=== PATIENT | male | born 1970 | race Caucasian/White ===

== ENCOUNTER 2020-02-03 08:22 | Outpatient (REF) | payer BC, SELFPAY ==
[2020-02-03 11:49] LABS: Alanine Aminotransferase 40 U/L (0-40); Albumin Level 4.6 g/dL (3.5-5.0); Alkaline Phosphatase 53 U/L (39-117); Anion Gap 15 (12-20); Aspartate Amino Transferase 32 U/L (5-37); Bilirubin Total 0.7 mg/dL (0.0-1.0); Blood Urea Nitrogen 14 mg/dL (9-16); Calcium 9.4 mg/dL (8.4-10.2); Carbon Dioxide 28 mmol/L (22-29); Chloride 103 mmol/L (96-108); Cholesterol 186 mg/dL; Estimated Glomerular Filt Rate > 60; Glucose Fasting 120 mg/dL (60-99); HDL Cholesterol 62 mg/dL; LDL Cholesterol Calculated 113 mg/dl; Potassium 5.2 mmol/l (3.3-5.1); Sodium 141 mmol/L (135-145); Total Protein 7.3 g/dL (6.5-8.0); Triglycerides 57 mg/dL
== END 2020-02-03 08:23 | disposition home or self-care (01) ==
LOC: HO.HMGCLDS 08:22
PROVIDERS: PCP Nurse Practitioner Family; Visit Provider Nurse Practitioner Family
DX: E11.9 Type 2 diabetes mellitus without complications (principal)
CPT/HCPCS: 80053; 80061

== ENCOUNTER 2020-02-25 07:52 | Outpatient (REF) | payer BC, SELFPAY ==
[2020-02-25 11:28] LABS: Estimated Average Glucose 154 mg/dL
[2020-02-25 12:10] LABS: Anion Gap 14 (12-20); Blood Urea Nitrogen 18 mg/dL (9-16); Calcium 9.4 mg/dL (8.4-10.2); Carbon Dioxide 29 mmol/L (22-29); Chloride 102 mmol/L (96-108); Cholesterol 188 mg/dL; Estimated Glomerular Filt Rate > 60; Glucose Random 125 mg/dL (60-115); HDL Cholesterol 45 mg/dL; LDL Cholesterol Calculated 101 mg/dl; Potassium 5.8 mmol/l (3.3-5.1); Sodium 139 mmol/L (135-145); Triglycerides 211 mg/dL
[2020-02-25 12:33] LABS: Prostate Specific Antigen Scr 0.78 ng/mL (<0.05-4.0)
== END 2020-02-25 07:53 | disposition home or self-care (01) ==
LOC: HO.HMGCLDS 07:52
PROVIDERS: PCP Nurse Practitioner Family; Visit Provider Nurse Practitioner Family
DX: Z12.5 Encounter for screening for malignant neoplasm of prostate (principal); E11.9 Type 2 diabetes mellitus without complications; E87.5 Hyperkalemia
CPT/HCPCS: 80048; 80061; 83036; 84153

== ENCOUNTER 2020-03-06 07:53 | Outpatient (REF) | payer BC, SELFPAY ==
[2020-03-06 11:34] LABS: Anion Gap 13 (12-20); Carbon Dioxide 29 mmol/L (22-29); Chloride 103 mmol/L (96-108); Potassium 4.5 mmol/l (3.3-5.1); Sodium 140 mmol/L (135-145)
== END 2020-03-06 07:54 | disposition home or self-care (01) ==
LOC: HO.HMGCLDS 07:53
PROVIDERS: PCP Nurse Practitioner Family; Visit Provider Nurse Practitioner Family
DX: E87.5 Hyperkalemia (principal)
CPT/HCPCS: 80051

== ENCOUNTER 2020-05-05 06:51 | Outpatient (REF) | payer BC, SELFPAY ==
[2020-05-05 11:54] LABS: Anion Gap 14 (12-20); Carbon Dioxide 31 mmol/L (22-29); Chloride 102 mmol/L (96-108); Cholesterol 185 mg/dL; HDL Cholesterol 51 mg/dL; LDL Cholesterol Calculated 111 mg/dl; Potassium 4.5 mmol/l (3.3-5.1); Sodium 142 mmol/L (135-145); Triglycerides 116 mg/dL
== END 2020-05-05 06:52 | disposition home or self-care (01) ==
LOC: HO.HMGCLDS 06:51
PROVIDERS: PCP Nurse Practitioner Family; Visit Provider Nurse Practitioner Family
DX: E87.5 Hyperkalemia (principal); E78.5 Hyperlipidemia, unspecified
CPT/HCPCS: 36415; 80051; 80061

== ENCOUNTER 2020-07-15 09:39 | Outpatient (REF) | payer BC, SELFPAY ==
[2020-07-15 11:06] LABS: Estimated Average Glucose 151 mg/dL; Hemoglobin A1c % 6.9 %
== END 2020-07-15 09:40 | disposition home or self-care (01) ==
LOC: HO.LAB 09:39
PROVIDERS: PCP Nurse Practitioner Family; Visit Provider Nurse Practitioner Family
DX: E11.9 Type 2 diabetes mellitus without complications (principal)
CPT/HCPCS: 36415; 83036

== ENCOUNTER 2020-11-10 12:44 | Outpatient (REF) | payer BC, SELFPAY ==
[2020-11-10 14:07] LABS: Estimated Average Glucose 154 mg/dL
[2020-11-10 14:19] LABS: Creatinine Urine 32.87 mg/dL; Microalbumin Urine < 5.0 mg/L
[2020-11-10 14:21] LABS: Alanine Aminotransferase 22 U/L (0-40); Albumin Level 4.8 g/dL (3.5-5.0); Alkaline Phosphatase 51 U/L (39-117); Anion Gap 14 (12-20); Aspartate Amino Transferase 23 U/L (5-37); Bilirubin Total 0.7 mg/dL (0.0-1.0); Blood Urea Nitrogen 21 mg/dL (9-16); Calcium 10.1 mg/dL (8.4-10.2); Carbon Dioxide 27 mmol/L (22-29); Chloride 104 mmol/L (96-108); Cholesterol 229 mg/dL; Estimated Glomerular Filt Rate > 60; Glucose Fasting 132 mg/dL (60-99); HDL Cholesterol 56 mg/dL; LDL Cholesterol Calculated 156 mg/dl; Potassium 4.8 mmol/L (3.3-5.1); Sodium 140 mmol/L (135-145); Total Protein 7.8 g/dL (6.5-8.0); Triglycerides 88 mg/dL
[2020-11-13 18:17] LABS: Follicle Stimulating Hormone 1.6 mIU/mL (1.6-8.0); Lutenizing Hormone 1.3 mIU/mL (1.5-9.3)
[2020-11-15 11:32] LABS: Testosterone, Free 55.2 pg/mL (35.0-155.0); Testosterone, Total 502 ng/dL (250-1100)
== END 2020-11-10 12:45 | disposition home or self-care (01) ==
LOC: HO.HMGCLDS 12:44
PROVIDERS: PCP Nurse Practitioner Family; Visit Provider Nurse Practitioner Family
DX: N52.9 Male erectile dysfunction, unspecified (principal); E11.9 Type 2 diabetes mellitus without complications
CPT/HCPCS: 36415; 80053; 80061; 82043; 83001; 83002; 83036; 84402; 84403

== ENCOUNTER → 2020-11-30 13:32 | Outpatient (BNVA) | payer BC, SELFPAY | PROVIDERS: PCP Nurse Practitioner Family; Visit Provider Urology ==

== ENCOUNTER → 2020-12-19 14:23 | Outpatient (BNVA) | payer BC, SELFPAY | PROVIDERS: PCP Nurse Practitioner Family; Referring Provider Nurse Practitioner Family; Visit Provider Surgery ==

== ENCOUNTER 2021-02-22 14:57 | Outpatient (REF) | payer BC, SELFPAY ==
[2021-02-22 16:45] LABS: Estimated Average Glucose 160 mg/dL; Hemoglobin A1c % 7.2 %
[2021-02-22 16:50] LABS: Alanine Aminotransferase 38 U/L (0-40); Albumin Level 4.7 g/dL (3.5-5.0); Alkaline Phosphatase 58 U/L (39-117); Anion Gap 14 (12-20); Aspartate Amino Transferase 30 U/L (5-37); Bilirubin Total 0.6 mg/dL (0.0-1.0); Blood Urea Nitrogen 15 mg/dL (9-16); Calcium 9.9 mg/dL (8.4-10.2); Carbon Dioxide 27 mmol/L (22-29); Chloride 103 mmol/L (96-108); Cholesterol 204 mg/dL; Estimated Glomerular Filt Rate > 60; Glucose Fasting 112 mg/dL (60-99); HDL Cholesterol 60 mg/dL; LDL Cholesterol Calculated 129 mg/dl; Potassium 4.9 mmol/L (3.3-5.1); Sodium 139 mmol/L (135-145); Total Protein 7.8 g/dL (6.5-8.0); Triglycerides 79 mg/dL
[2021-02-22 17:10] LABS: Prostate Specific Antigen Scr 0.77 ng/mL (<0.05-4.0)
== END 2021-02-22 14:58 | disposition home or self-care (01) ==
LOC: HO.HMGCLDS 14:57
PROVIDERS: PCP Nurse Practitioner Family; Visit Provider Nurse Practitioner Family
DX: E11.9 Type 2 diabetes mellitus without complications (principal); Z12.5 Encounter for screening for malignant neoplasm of prostate
CPT/HCPCS: 36415; 80053; 80061; 83036; 84153

== ENCOUNTER 2021-05-25 06:54 | Outpatient (REF) | payer BC, SELFPAY | END 2021-05-25 06:55 | disposition home or self-care (01) | LOC: HO.HMGCLDS 06:54 | PROVIDERS: Visit Provider Nurse Practitioner Family | DX: Z12.5 Encounter for screening for malignant neoplasm of prostate (principal) | CPT/HCPCS: 36415; 84153 ==

== ENCOUNTER 2021-06-11 06:52 | Outpatient (REF) | payer BC, SELFPAY ==
[2021-06-11 11:45] LABS: Estimated Average Glucose 226 mg/dL; Hemoglobin A1c % 9.5 %
[2021-06-11 11:54] LABS: Alanine Aminotransferase 26 U/L (0-40); Anion Gap 12 (12-20); Aspartate Amino Transferase 22 U/L (5-37); Blood Urea Nitrogen 17 mg/dL (9-16); Carbon Dioxide 29 mmol/L (22-29); Chloride 103 mmol/L (96-108); Estimated Glomerular Filt Rate > 60; Glucose Fasting 254 mg/dL (60-99); Potassium 5.2 mmol/L (3.3-5.1); Sodium 139 mmol/L (135-145)
[2021-06-11 12:19] LABS: Creatinine Urine 91.79 mg/dL; Microalbumin Urine < 5.0 mg/L
== END 2021-06-11 06:53 | disposition home or self-care (01) ==
LOC: HO.HMGCLDS 06:52
PROVIDERS: PCP Nurse Practitioner Family; Visit Provider Internal Medicine
DX: E11.9 Type 2 diabetes mellitus without complications (principal)
CPT/HCPCS: 36415; 80048; 82043; 83036; 84450; 84460

== ENCOUNTER → 2021-08-08 15:18 | Outpatient (BNVA) | payer BC, SELFPAY | PROVIDERS: PCP Nurse Practitioner Family; Visit Provider Internal Medicine Endocrinology, Diabetes & Metabolism | DX: E11.9 Type 2 diabetes mellitus without complications (principal); Z79.4 Long term (current) use of insulin | CPT/HCPCS: 82947 ==

== ENCOUNTER 2021-08-09 06:00 | Outpatient (REF) | payer BC, SELFPAY ==
[2021-08-09 11:42] LABS: Estimated Average Glucose 246 mg/dL; Hemoglobin A1c % 10.2 %
[2021-08-09 12:09] LABS: TSH reflex Free T4 2.66 uIU/mL (0.32-4.0)
[2021-08-09 12:20] LABS: Alanine Aminotransferase 35 U/L (0-40); Albumin Level 4.4 g/dL (3.5-5.0); Alkaline Phosphatase 50 U/L (39-117); Anion Gap 14 (12-20); Aspartate Amino Transferase 31 U/L (5-37); Bilirubin Total 0.6 mg/dL (0.0-1.0); Blood Urea Nitrogen 18 mg/dL (9-16); Calcium 9.8 mg/dL (8.4-10.2); Carbon Dioxide 28 mmol/L (22-29); Chloride 102 mmol/L (96-108); Cholesterol 180 mg/dL; Estimated Glomerular Filt Rate 59; Glucose Fasting 225 mg/dL (60-99); HDL Cholesterol 46 mg/dL; LDL Cholesterol Calculated 110 mg/dl; Potassium 4.8 mmol/L (3.3-5.1); Sodium 139 mmol/L (135-145); Total Protein 7.2 g/dL (6.5-8.0); Triglycerides 122 mg/dL
[2021-08-09 12:33] LABS: Appearance Urine CLEAR; Color Urine DK YELLOW; Glucose Urine UA 100 MG/DL (NEG); Leukocyte Esterase Urine NEG (NEG); Nitrite Urine NEG (NEG); Specific Gravity - Urine 1.025 (1.005-1.025); Urine Blood NEG (NEG); Urine Ketones 5 MG/DL (NEG); Urine Protein NEG (NEG-TRACE)
[2021-08-14 20:26] LABS: Glutamic acid decarboxylase Ab <5 IU/mL (<5)
== END 2021-08-09 06:01 | disposition home or self-care (01) ==
LOC: HO.HMGCLDS 06:00
PROVIDERS: PCP Nurse Practitioner Family; Visit Provider Internal Medicine Endocrinology, Diabetes & Metabolism
DX: E11.9 Type 2 diabetes mellitus without complications (principal)
CPT/HCPCS: 36415; 80053; 80061; 81003; 83036; 84443; 86341

== ENCOUNTER → 2021-08-14 14:50 | Outpatient (BNVA) | payer BC, SELFPAY | PROVIDERS: PCP Nurse Practitioner Family; Visit Provider Registered Nurse Diabetes Educator | DX: Z13.89 Encounter for screening for other disorder (principal) ==

== ENCOUNTER 2021-09-12 06:22 | Outpatient (REF) | payer BC, SELFPAY ==
[2021-09-12 11:35] LABS: Appearance Urine CLEAR; Color Urine YELLOW; Glucose Urine UA NEG (NEG); Leukocyte Esterase Urine NEG (NEG); Nitrite Urine NEG (NEG); Specific Gravity - Urine 1.025 (1.005-1.025); UACC Culture Trigger NO; Urine Blood TRACE (NEG); Urine Ketones NEG (NEG); Urine Protein NEG (NEG-TRACE)
[2021-09-12 12:01] LABS: Alanine Aminotransferase 26 U/L (0-40); Albumin Level 4.1 g/dL (3.5-5.0); Alkaline Phosphatase 48 U/L (39-117); Anion Gap 13 (12-20); Aspartate Amino Transferase 26 U/L (5-37); Bilirubin Total 0.3 mg/dL (0.0-1.0); Blood Urea Nitrogen 17 mg/dL (9-16); Calcium 9.6 mg/dL (8.4-10.2); Carbon Dioxide 26 mmol/L (22-29); Chloride 105 mmol/L (96-108); Cholesterol 186 mg/dL; Estimated Glomerular Filt Rate > 60; Glucose Fasting 137 mg/dL (60-99); HDL Cholesterol 56 mg/dL; LDL Cholesterol Calculated 106 mg/dl; Potassium 4.3 mmol/L (3.3-5.1); Sodium 140 mmol/L (135-145); Total Protein 6.9 g/dL (6.5-8.0); Triglycerides 122 mg/dL
[2021-09-12 12:06] LABS: TSH reflex Free T4 2.14 uIU/mL (0.32-4.0)
[2021-09-12 12:07] LABS: RBC Urine 0-2 /HPF (0); WBC Urine 0 /HPF (0-4)
== END 2021-09-12 06:23 | disposition home or self-care (01) ==
LOC: HO.HMGCLDS 06:22
PROVIDERS: Visit Provider Nurse Practitioner Family
DX: E11.69 Type 2 diabetes mellitus with other specified complication (principal); N52.1 Erectile dysfunction due to diseases classified elsewhere; E78.5 Hyperlipidemia, unspecified; Z71.3 Dietary counseling and surveillance
CPT/HCPCS: 36415; 80053; 80061; 81001; 84443; 97802

== ENCOUNTER 2021-09-24 09:39 | Outpatient (REF) | payer BC, SELFPAY ==
--- NOTE | ~2021-09-24 | XR_ITS ---
EXAMINATION: XR KNEE, LEFT CLINICAL INFORMATION: Pain COMPARISON: None TECHNIQUE: Four views of the left knee. FINDINGS: Bone alignment is normal. No fracture or dislocation is seen. There is degenerative meniscal calcification. There are small osteophytes at the patellofemoral joint. There is a small joint effusion. XR/XR knee LT 4V IMPRESSION: Degenerative changes.
== END 2021-09-24 09:40 | disposition home or self-care (01) ==
LOC: HO.HMGCX 09:39
PROVIDERS: Visit Provider Nurse Practitioner Family
DX: M25.562 Pain in left knee (principal)
CPT/HCPCS: 73564

== ENCOUNTER → 2021-11-08 14:15 | Outpatient (BNVA) | payer BC, SELFPAY | PROVIDERS: PCP Nurse Practitioner Family; Visit Provider Internal Medicine Endocrinology, Diabetes & Metabolism | DX: E11.9 Type 2 diabetes mellitus without complications (principal) | CPT/HCPCS: 82947 ==

== ENCOUNTER 2021-11-16 06:29 | Outpatient (REF) | payer BC, SELFPAY ==
[2021-11-16 11:54] LABS: MANUAL DIFF FLAG NO
[2021-11-16 12:07] LABS: Basophils Percent Auto 0.6 % (0-2); Eosinophils Absolute Auto 0.3 X10*3/uL (0.0-0.4); Eosinophils Percent Auto 5.1 % (0-4); Hematocrit 43.2 % (42.0-52.0); Hemoglobin 14.1 g/dl (14.0-18.0); Imm Gran Abs Auto 0.01 X10*3/uL (0.00-0.03); Imm Gran Pct Auto 0.2 % (0.0-0.4); Lymphocytes Absolute Auto 1.6 X10*3/uL (1.2-4.9); Lymphocytes Percent Auto 31.8 % (20-40); Mean Corpuscular HGB Conc 32.6 g/dl (31.0-36.0); Mean Corpuscular Volume 91.9 fL (80.0-98.0); Monocytes Absolute Auto 0.6 X10*3/uL (0.1-1.2); Monocytes Percent Auto 11.6 % (2-11); Neutrophils Absolute Auto 2.6 x10*3/uL (2.0-8.3); Neutrophils Percent Auto 50.7 % (45-73); Platelet Count 247 X10*3/uL (160-400); White Blood Count 5.1 X10*3/uL (4.8-10.8)
[2021-11-16 12:17] LABS: Appearance Urine CLEAR; Color Urine YELLOW; Glucose Urine UA NEG (NEG); Leukocyte Esterase Urine NEG (NEG); Nitrite Urine NEG (NEG); PH 5.5 (5.0-8.0); Specific Gravity - Urine >= 1.030 (1.005-1.025); UACC Culture Trigger NO; Urine Blood TRACE (NEG); Urine Ketones 5 MG/DL (NEG); Urine Protein NEG (NEG-TRACE)
[2021-11-16 12:32] LABS: Alanine Aminotransferase 22 U/L (0-40); Albumin Level 4.5 g/dL (3.5-5.0); Alkaline Phosphatase 45 U/L (39-117); Anion Gap 15 (12-20); Aspartate Amino Transferase 24 U/L (5-37); Bilirubin Total 0.7 mg/dL (0.0-1.0); Blood Urea Nitrogen 20 mg/dL (9-16); Calcium 10.1 mg/dL (8.4-10.2); Carbon Dioxide 27 mmol/L (22-29); Chloride 104 mmol/L (96-108); Cholesterol 207 mg/dL; Estimated Glomerular Filt Rate 58; Glucose Fasting 116 mg/dL (60-99); HDL Cholesterol 58 mg/dL; LDL Cholesterol Calculated 130 mg/dl; Potassium 5.5 mmol/L (3.3-5.1); Sodium 140 mmol/L (135-145); Total Protein 7.4 g/dL (6.5-8.0); Triglycerides 99 mg/dL
[2021-11-16 12:37] LABS: Prostate Specific Antigen Scr 0.98 ng/mL (<0.05-4.0); TSH reflex Free T4 1.48 uIU/mL (0.32-4.0)
[2021-11-16 12:48] LABS: Mucus Urine 1+ /LPF; RBC Urine 0-2 /HPF (0); Squamous Epithelial Cell Urine TRACE /LPF; WBC Urine 0-2 /HPF (0-4)
== END 2021-11-16 06:30 | disposition home or self-care (01) ==
LOC: HO.CHCLDS 06:29
PROVIDERS: PCP Nurse Practitioner Family; Visit Provider Nurse Practitioner Family
DX: Z00.00 Encounter for general adult medical examination without abnormal findings (principal); E87.5 Hyperkalemia; Z12.5 Encounter for screening for malignant neoplasm of prostate
CPT/HCPCS: 36415; 80053; 80061; 81001; 81003; 84153; 84443; 85025

== ENCOUNTER 2022-03-04 08:47 | Outpatient (REF) | payer BC, SELFPAY ==
[2022-03-04 10:09] LABS: Anion Gap 14 (12-20); Carbon Dioxide 28 mmol/L (22-29); Chloride 105 mmol/L (96-108); Cholesterol 195 mg/dL; HDL Cholesterol 48 mg/dL; LDL Cholesterol Calculated 133 mg/dl; Potassium 4.9 mmol/L (3.3-5.1); Sodium 142 mmol/L (135-145); Triglycerides 72 mg/dL
[2022-03-04 10:22] LABS: Appearance Urine Clear; Color Urine Yellow; Glucose Urine UA Negative (Negative); Leukocyte Esterase Urine Negative (Negative); Nitrite Urine Negative (Negative); Specific Gravity - Urine 1.025 (1.005-1.025); Urine Blood Negative (Negative); Urine Ketones Trace mg/dL (Negative); Urine Protein Negative (Neg-Trace)
[2022-03-04 11:34] LABS: Glucose 1 Hour 325 mg/dL
[2022-03-04 12:43] LABS: Glucose 2 Hour 295 mg/dL
[2022-03-04 13:13] LABS: Glucose Fasting 107 mg/dL (60-99)
[2022-03-06 03:36] LABS: C Peptide 0.71 ng/mL (0.80-3.85)
== END 2022-03-04 08:48 | disposition home or self-care (01) ==
LOC: HO.LAB 08:47
PROVIDERS: Absent Provider Internal Medicine Endocrinology, Diabetes & Metabolism; PCP Nurse Practitioner Family; Visit Provider Nurse Practitioner Family
DX: Z00.00 Encounter for general adult medical examination without abnormal findings (principal); E87.5 Hyperkalemia; E11.9 Type 2 diabetes mellitus without complications
CPT/HCPCS: 36415; 80051; 80061; 81003; 82951; 84681

== ENCOUNTER → 2022-03-29 07:50 | Outpatient (BNVA) | payer BC, SELFPAY | PROVIDERS: PCP Nurse Practitioner Family; Visit Provider Internal Medicine Endocrinology, Diabetes & Metabolism | DX: E11.9 Type 2 diabetes mellitus without complications (principal) | CPT/HCPCS: 82947; 83036 ==

== ENCOUNTER 2022-10-04 09:35 | Outpatient (REF) | payer BC, SELFPAY ==
[2022-10-04 12:23] LABS: Microalbumin Urine < 5.0 mg/L
[2022-10-04 12:35] LABS: Cholesterol 186 mg/dL; HDL Cholesterol 49 mg/dL; LDL Cholesterol Calculated 113 mg/dl; Triglycerides 120 mg/dL
== END 2022-10-04 09:36 | disposition home or self-care (01) ==
LOC: HO.HMGCLDS 09:35
PROVIDERS: PCP Nurse Practitioner Family; Visit Provider Internal Medicine Endocrinology, Diabetes & Metabolism
DX: E11.9 Type 2 diabetes mellitus without complications (principal)
CPT/HCPCS: 36415; 80061; 82043

== ENCOUNTER → 2022-10-08 07:54 | Outpatient (BNVA) | payer BC, SELFPAY | PROVIDERS: PCP Nurse Practitioner Family; Visit Provider Internal Medicine Endocrinology, Diabetes & Metabolism | DX: E11.9 Type 2 diabetes mellitus without complications (principal); Z79.4 Long term (current) use of insulin | CPT/HCPCS: 82947; 83036 ==

== ENCOUNTER 2023-03-14 15:39 | Outpatient (AMB) | payer BC, SELFPAY ==
--- NOTE | 2023-03-14 15:45 | MHC.OFFVIS ---
Intake Intake Visit Reasons: 1 year follow up Intake Note: Patient is Present for Follow Up Urology Medication: Sildenafil Antibiotic Allergies: None Blood Thinners: None Allergies No Known Allergies Allergy (Verified 03/14/23 15:46) HPI HPI Comments History of Present Illness Details Navin is a pleasant male. He is seen for the following urologic conditions - erectile dysfunction Twelve month follow-up Will switch to daily 10mg tadalafil with on demand high-dose sildenafil Three month follow-up labs Erectile dysfunction Diabetic Last HBA1c 10/04 7.1 Response to medication - does obtain erection but does not maintain Response does not very with increasing dose Baseline labs 11/01 T 500, well controlled HbA1c Discussion about maximum dose sildenafil 200 mg Other options include constriction band, vacuum pump, injectable therapy and penile prosthetic PFSH Medical History Dyslipidemia Diabetes Surgical History No pertinent past surgical history Family History Father No problems noted. Mother Dementia Sister No problems noted. Social History Housing: House Alcohol intake: current Patient Tobacco Use Status: Never used Tobacco e-Cigarette/Vaping Use: Never Used Second Hand Smoke Exposure: No service: Yes Current occupational status: employed Current occupation: [employer] Current occupational exposures/hazards: Yes Cognitive needs: No Hearing needs: No Vision needs: Yes Review of Systems Const Denies chills and Denies fever(s) Card Reports no additional complaints and Denies syncope Resp Denies cough GI Denies abdominal pain and Denies heartburn Reports as per HPI and Denies change in libido Neuro Denies syncope Psych Denies change in libido Endo Denies change in libido Physical Exam Const General: cooperative, healthy appearing, comfortable and no acute distress Orientation/consciousness: patient oriented x3 HEENT Face and sinus: Yes normal facial exam Mouth: moist mucous membranes Neck Neck: Yes normal visual inspection, Yes full ROM and Yes trachea midline Chest Chest palpation & inspection: normal inspection of the chest Resp Effort & Inspection: normal respiratory effort, able to speak in complete sentences and no respiratory distress GI Inspection: Yes normal to inspection Back/Spine/Pelvis Cervical Spine: normal cervical lordosis Thoracic/Lumbar Spine: thoracic and lumbar spine normal to inspection Skin General skin exam: no rashes or lesions noted Neuro General: patient oriented x3, gait normal, tone normal and moves all extremities Extrem General: Yes normal to inspection and Yes capillary refill normal Assessment & Plan Assessment & Plan (1) Erectile dysfunction associated with type 2 diabetes mellitus: Code(s): E11.69 - Type 2 diabetes mellitus with other specified complication; N52.1 - Erectile dysfunction due to diseases classified elsewhere Plan Three month follow-up Orders: Orders Testosterone, Free/Total 3 Months E11.69 - Type 2 diabetes mellitus with other specified complication, N52.1 - Erectile dysfunction due to diseases classified elsewhere Medications: New tadalafil 5 mg PO DAILY 90 tabs 0RF sexual activity 90 days E11. - Type 2 diabetes mellitus with other specified complication, N52.1 - Erectile dysfunction due to diseases classified elsewhere Patient Instructions: Imaging studies, laboratory and physical exam results were discussed and reviewed in detail. No major barriers to patient understanding were identified. An opportunity to ask questions regarding the treatment plan was provided. All questions were answered. The patient expressed understanding and agreement with the above treatment plan. The patient is aware they should contact our office by phone for worsening of their current condition or the appearance of new urologic symptoms. Compliance is encouraged with any medications and followup testing that is ordered. It is a privilege to participate in the urologic care of your patient. If you have any questions or concerns regarding treatment for the above conditions, or other urologic issues, please do not hesitate to contact me. The office telephone contact is [phone]. This note is constructed using voice recognition software. While every effort has been made to ensure accuracy senior civil engineer errors may have been included. Yours sincerely, Dr Nick Zuleta MD, [facility] - Urology Providers of Expert, Compassionate Care for the Genitourinary System Coding Level of Care Code Est Pt Level 4 (30886) Diagnoses Erectile dysfunction associated with type 2 diabetes mellitus E11.69; N52.1
== END 2023-03-14 16:45 | disposition home or self-care (01) ==
PROVIDERS: Visit Provider Urology
DX: E11.69 Type 2 diabetes mellitus with other specified complication (principal); N52.1 Erectile dysfunction due to diseases classified elsewhere
CPT/HCPCS: 99214

== ENCOUNTER → 2023-03-14 15:39 | Outpatient (BNVA) | payer BC, SELFPAY | PROVIDERS: Visit Provider Urology ==

== ENCOUNTER 2023-06-09 15:20 | Outpatient (REF) | payer BC, SELFPAY ==
[2023-06-15 09:48] LABS: Testosterone, Free 68.3 pg/mL (35.0-155.0); Testosterone, Total 474 ng/dL (250-1100)
== END 2023-06-09 15:21 | disposition home or self-care (01) ==
LOC: HO.HMGCLDS 15:20
PROVIDERS: PCP Nurse Practitioner Family; Visit Provider Urology
DX: E11.69 Type 2 diabetes mellitus with other specified complication (principal); N52.1 Erectile dysfunction due to diseases classified elsewhere
CPT/HCPCS: 36415; 84402; 84403

== ENCOUNTER 2023-06-19 08:05 | Outpatient (AMB) | payer BC, SELFPAY ==
--- NOTE | 2023-06-19 08:06 | A.OFFVIS_ITS ---
Intake Intake Visit Reasons: 3M Testo(set)Confirmed Intake Note: Patient presents today for a telehealth follow-up on Testosterone Meds- Sildenafil, Tadalafil Allergies to Antibiotic- No Known Allergies Blood Thinner- None Ammunition Assembly I Laborer Required: No Allergies No Known Allergies Allergy (Verified 06/19/23 08:08) HPI HPI Comments History of Present Illness Details Navin is a pleasant male. He is seen for the following urologic conditions - erectile dysfunction in setting of mykel davidson Telemedicine Evaluation 15 min Consultation [employer] [facility] Video attempted Good response to daily tadalafil with on demand sildenafil Continue with 5mg tadalafil with on demand high-dose sildenafil Six month f/u Erectile dysfunction Diabetic Last HBA1c 10/04 7.1 Response to medication - does obtain erection but does not maintain Response does not very with increasing dose Baseline labs 11/01 T 500, well controlled HbA1c, 06/07 T 475 FT 68 Discussion about maximum dose sildenafil 200 mg Other options include constriction band, vacuum pump, injectable therapy and penile prosthetic [facility] Medical History Dyslipidemia Diabetes Surgical History No pertinent past surgical history Family History Father No problems noted. Mother Dementia Sister No problems noted. Social History Housing: House Alcohol intake: current Patient Tobacco Use Status: Never used Tobacco e-Cigarette/Vaping Use: Never Used Second Hand Smoke Exposure: No service: Yes Current occupational status: employed Current occupation: [employer] Current occupational exposures/hazards: Yes Cognitive needs: No Hearing needs: No Vision needs: Yes Review of Systems Const All systems reviewed & are unremarkable except as noted in HPI and below Reports no additional complaints Resp Reports no additional complaints GI Reports no additional complaints Reports as per HPI [facility] [place] no additional complaints Physical Exam Telemedicine evaluation Appropriate responses Regular breathing rate and rhythm HEENT Head: Yes normal to inspection Ears: hearing grossly normal bilaterally Eyes General: appearance normal, both eyes and all related structures Neck Neck: Yes normal visual inspection Chest Chest palpation & inspection: normal inspection of the chest Resp Effort & Inspection: normal respiratory effort and able to speak in complete sentences Assessment & Plan Assessment & Plan (1) Erectile dysfunction associated with type 2 diabetes mellitus: Code(s): E11.69 - Type 2 diabetes mellitus with other specified complication; N52.1 - Erectile dysfunction due to diseases classified elsewhere Plan Six-month follow-up office Medications: Refilled tadalafil 5 mg PO DAILY 90 tabs 1RF sexual activity 90 days E11.69 - Type 2 diabetes mellitus with other specified complication, N52.1 - Erectile dysfunction due to diseases classified elsewhere Patient Instructions: Imaging studies, laboratory and physical exam results were discussed and reviewed in detail. No major barriers to patient understanding were identified. An opportunity to ask questions regarding the treatment plan was provided. All questions were answered. The patient expressed understanding and agreement with the above treatment plan. The patient is aware they should contact our office by phone for worsening of their current condition or the appearance of new urologic symptoms. Compliance is encouraged with any medications and followup testing that is ordered. It is a privilege to participate in the urologic care of your patient. If you have any questions or concerns regarding treatment for the above conditions, or other urologic issues, please do not hesitate to contact me. The office telephone contact is [phone]. This note is constructed using voice recognition software. While every effort has been made to ensure accuracy embalmer assistant errors may have been included. Yours sincerely, Dr Nick Zuleta MD, [facility] - Urology Providers of Expert, Compassionate Care for the Genitourinary System Telehealth Telehealth Location of provider rendering services: practice address Location of patient: address on file Patient Identification confirmed using: Name, : Yes Telehealth method: video Patient verbally consented to treatment: Yes Patient verbally consented to billing insurance company: Yes Patient informed of any privacy concerns related to visit: Yes Minutes spent on Phone/Video with Pt.: 15 Coding Level of Care Code Tele Est Pt Level 3 (38412) Diagnoses Erectile dysfunction associated with type 2 diabetes mellitus E11.69; N52.1
== END 2023-06-19 09:01 | disposition home or self-care (01) ==
LOC: HO.HUSH 08:06
PROVIDERS: PCP Nurse Practitioner Family; Visit Provider Urology
DX: E11.69 Type 2 diabetes mellitus with other specified complication (principal); N52.1 Erectile dysfunction due to diseases classified elsewhere
CPT/HCPCS: 99213

== ENCOUNTER → 2023-06-19 08:05 | Outpatient (BNVA) | payer BC, SELFPAY | PROVIDERS: PCP Nurse Practitioner Family; Visit Provider Urology ==

== ENCOUNTER 2023-07-04 07:28 | Outpatient (REF) | payer BC, SELFPAY ==
[2023-07-04 11:10] LABS: Cholesterol 197 mg/dL (<200); HDL Cholesterol 51 mg/dL (>40); LDL Cholesterol Calculated 128 mg/dL (<100); Triglycerides 94 mg/dL (<150)
== END 2023-07-04 07:29 | disposition home or self-care (01) ==
LOC: HO.HMGCLDS 07:28
PROVIDERS: PCP Nurse Practitioner Family; Visit Provider Internal Medicine Endocrinology, Diabetes & Metabolism
DX: E11.9 Type 2 diabetes mellitus without complications (principal)
CPT/HCPCS: 36415; 80061

== ENCOUNTER 2023-07-09 11:22 | Outpatient (AMB) | payer BC, SELFPAY ==
[2023-07-09 11:24] VITALS: BP 112/66; PULSE 76; BMI 23.4
--- NOTE | 2023-07-09 11:24 | A.OFFVIS_ITS ---
Intake Vital Signs 07/09/23 11:24 Height 5 ft 11 in Weight 167 lb 15.876 oz BMI 23.4 BP 112/66 Blood Pressure Location Lt brachial Position Sitting Pulse 76 Pulse Source Pulse Oximeter Intake Visit Reasons: f/u type 2 DM-confirmed Intake Note: Patient presents today to follow up on D2MT. Last Diabetic Eye exam:11/2022 Last Podiatry Visit: Doesn't have one Random Glucose: 98 mg/dl HgA1c: 6.7% Materials Planner Required: No Accompanied by: Self / Same As Patient Allergies No Known Allergies Allergy (Verified 07/09/23 11:29) Medication List - Last Reconciled 07/09/23 by Huey Kulkarni MD atorvastatin 80 mg (2 x 40 mg) PO QPM blood sugar diagnostic As directed blood-glucose meter,continuous (Dexcom G6 Baseboard Heating Installer) As directed blood-glucose meter,continuous (Dexcom G6 Baseboard Heating Installer) As directed blood-glucose sensor (Dexcom G6 Sensor device) As directed blood-glucose transmitter (Dexcom G6 Transmitter device) As directed glucagon 3 mg/actuation (Baqsimi) 3 mg intranasal ONCE insulin glargine (Basaglar KwikPen U-100 Insulin) 15 units (0.15 mL) subcut QAM metformin ER 1,000 mg (2 x 500 mg) PO QPM pen needle, diabetic (BD Jojo 2nd Gen Pen Needle) USE DIRECTED sildenafil 100 mg PO ONCE PRN 30 days tadalafil 5 mg PO DAILY 90 days tirzepatide (Mounjaro) 2.5 mg (0.5 mL) subcut QWEEK 4 weeks HPI HPI Comments History of Present Illness Details 51 YO M who is seen in consultation for T2DM at the request of PCP. Initially diagnosed with T2DM in 2009. Was initially started on treatment with metformin. Took insulin 2015 20 units Lantus Off insulin 2017 Current regimen metformin Er 1000 mg QD Basaglar 15 units . Moujaro 2.5 mg Qwkly tolerating meds nicely Unfortunately, patient did not bring Dexcom or glucometer to follow-up visit Reports no low sugars . No Family history of T2DM in . However CHEMO antibodies were negative Has eyes checked yearly, last eye exam7-8 mos ago , has retinopathy.To see next wk Denies neuropathy,. Denies nephropathy, Not on DYLLAN/ARB. Has HLD, on statin. . Denies CAD. Not Had diabetes education. PFSH Medical History Dyslipidemia Diabetes Surgical History No pertinent past surgical history Family History Father No problems noted. Mother Dementia Sister No problems noted. Social History Housing: House Alcohol intake: current Patient Tobacco Use Status: Never used Tobacco e-Cigarette/Vaping Use: Never Used Second Hand Smoke Exposure: No service: Yes Current occupational status: employed Current occupation: [employer] Current occupational exposures/hazards: Yes Cognitive needs: No Hearing needs: No Vision needs: Yes Physical Exam Vital Signs: Last Vital Signs Pulse 76 07/09/23 11:24 BP 112/66 07/09/23 11:24 BMI result Body Mass Index 23.4 Absence of Cushingoid features. Absence of acromegalic features. Neck exam reveals nl size thyroid about 15 gms. No thyroid nodules palpable. No carotid bruits present. Lungs CTA. Heart S1 S2, Reg R/R. No M/R/ G. Skin exam reveals absence of vitiligo or acanthosis nigricans. Abdominal exam reveals Soft NT/ND with NA BS. No organomegaly present. Neck Other: . Extrem Other: Visual exam of foot performed. No ulcerations or open lesions. No onchomycosis, no callouses.Pulses 2 + distally Sensation intact to monofilament exam. Vibratory sensation sensed is intact with 128 Hz tuning fork Results AMB Hemoglobin A1c AMB Hemoglobin A1c 6.7 % Last Edit by MELLISSA Yanes on 07/09/23 11:40 Results Reviewed Results Reviewed: Laboratory Last Values Glucose (Clinic) 98 mg/dL (60-115) 07/09/23 11:31 Assessment & Plan Assessment & Plan (1) Diabetes: Code(s): E11.9 - Type 2 diabetes mellitus without complications Plan: This is a 53-year-old white male with a history of type 2 diabetes being treated with metformin, Mounjaro and basal insulin with excellent glycemic control and no known microvascular or macrovascular complications. The plan is to continue the current management. At this point, patient returned to the care of his primary care provider and returned back to endocrinology should HbA1c deteriorate. In Terms of lipids, patient was advised to take the 80 mg of atorvastatin rather than 40 mg and his primary care provider can recheck his lipid profile. Orders: Orders AMB Hemoglobin A1c Today E11.9 - Type 2 diabetes mellitus without complications, Z13.9 - Encounter for screening, unspecified Medications: New insulin glargine (Lantus Solostar U-100 Insulin) 15 units (0.15 mL) subcut QAM 3 mL 4RF Refilled tirzepatide (Mounjaro) 2.5 mg (0.5 mL) subcut QWEEK 4 weeks 2 mL 4RF Discontinued insulin glargine (Basaglar KwikPen U-100 Insulin) Discontinued Reason: Doctor's Order 15 units (0.15 mL) subcut QAM 15 mL 4RF Coding Level of Care Code Est Pt Level 4 (00341) Diagnoses Diabetes E11.9
[2023-07-09 11:35] LABS: Glucose, Whole Blood 98 mg/dL (60-115)
== END 2023-07-09 11:56 | disposition home or self-care (01) ==
PROVIDERS: PCP Nurse Practitioner Family; Visit Provider Internal Medicine Endocrinology, Diabetes & Metabolism
DX: Z13.9 Encounter for screening, unspecified (principal); E11.9 Type 2 diabetes mellitus without complications
CPT/HCPCS: 99214

== ENCOUNTER → 2023-07-09 11:22 | Outpatient (BNVA) | payer BC, SELFPAY | PROVIDERS: PCP Nurse Practitioner Family; Visit Provider Internal Medicine Endocrinology, Diabetes & Metabolism | DX: E11.9 Type 2 diabetes mellitus without complications (principal) | CPT/HCPCS: 82947; 83036 ==

== ENCOUNTER 2023-09-26 13:59 | Outpatient (AMB) | payer BC, SELFPAY ==
--- NOTE | 2023-09-26 14:00 | A.OFFVIS_ITS ---
Vital Signs 09/26/23 14:02 Height 5 ft 11 in Weight 166 lb 7.184 oz BMI 23.2 BP 108/76 Blood Pressure Location Rt brachial Position Sitting Pulse 75 Pulse Source Pulse Oximeter Intake Visit Reasons: T2DM/CONFIRMED Intake Note: Patient present today to follow up on Type 2 Diabetes Mellitus. Last seen on 07/09/2023 Last Diabetic Eye exam: 8-9 months ago Last Podiatry Visit: Does not see a [facility] Random Glucose: 180 mg/dl HgA1C: 6.7% 07/09/2023 Saddle And Harness Maker Required: No Accompanied by: Self / Same As Patient Allergies No Known Allergies Allergy (Verified 09/26/23 14:03) Medication List - Last Reconciled 09/26/23 by My Anna PA-C atorvastatin 80 mg (2 x 40 mg) PO QPM blood sugar diagnostic As directed blood-glucose meter,continuous (Dexcom G6 Unmanned Equipment Operator) As directed blood-glucose meter,continuous (Dexcom G6 Unmanned Equipment Operator) As directed blood-glucose sensor (Dexcom G6 Sensor device) As directed blood-glucose transmitter (Dexcom G6 Transmitter device) As directed glucagon 3 mg/actuation (Baqsimi) 3 mg intranasal ONCE insulin glargine (Lantus Solostar U-100 Insulin) 15 units (0.15 mL) subcut QAM metformin ER 1,000 mg (2 x 500 mg) PO QPM 90 days pen needle, diabetic (BD Jojo 2nd Gen Pen Needle) USE DIRECTED sildenafil 100 mg PO ONCE PRN 30 days tadalafil 5 mg PO DAILY 90 days tirzepatide (Mounjaro) 2.5 mg (0.5 mL) subcut QWEEK 12 weeks HPI HPI T2DM/CONFIRMED: Details: Patient is a 51-year-old male who presents today for a follow-up regarding diabetes. DM: Initially diagnosed with T2DM in 2009. Was initially started on treatment with metformin. Took trulicity before and tolerated but did better with mounjaro Current regimen metformin Er 1000 mg QD Basaglar 15 units . Moujaro 2.5 mg Qwkly tolerating meds nicely Dexcom review shows average glucose 149, 6.9%, 34 standard deviation, 100% usage. 1% very high, 15% high, 83% in range, less than 1% low and very low. Corrects his lows with cereal. No Family history of T2DM. However CHEMO antibodies were negative Has eyes checked yearly, has retinopathy Denies neuropathy,. Denies nephropathy, Not on DYLLAN/ARB. Has HLD, on statin. . Denies CAD. Not Had diabetes education. [facility] Medical History Dyslipidemia Diabetes Surgical History No pertinent past surgical history Family History Father No problems noted. Mother Dementia Sister No problems noted. Social History Housing: House Alcohol intake: current Patient Tobacco Use Status: Never used Tobacco e-Cigarette/Vaping Use: Never Used Second Hand Smoke Exposure: No service: Yes Current occupational status: employed Current occupation: [employer] Current occupational exposures/hazards: Yes Cognitive needs: No Hearing needs: No Vision needs: Yes Physical Exam Vital Signs: Last Vital Signs Pulse 75 09/26/23 14:02 BP 108/76 09/26/23 14:02 BMI result Body Mass Index 23.2 Results Reviewed Results Reviewed: Laboratory Tests 10/04/22 07/04/23 07/09/23 09:45 07:32 11:31 Glucose (Clinic) 98 Hgb A1c (Clinic) Triglycerides 94 Cholesterol 197 LDL Cholesterol, Calc 128 H HDL Cholesterol 51 Urine Creatinine 90.50 Urine Microalbumin < 5.0 07/09/23 11:33 Glucose (Clinic) Hgb A1c (Clinic) 6.7 H Triglycerides Cholesterol LDL Cholesterol, Calc HDL Cholesterol Urine Creatinine Urine Microalbumin Assessment & Plan Assessment & Plan (1) Erectile dysfunction associated with type 2 diabetes mellitus: Code(s): E11.69 - Type 2 diabetes mellitus with other specified complication; N52.1 - Erectile dysfunction due to diseases classified elsewhere Category: Medical Plan: Well-controlled. Continue current regimen. Will let me know if he runs into issues getting mounjaro filled (2) Dyslipidemia: Code(s): E78.5 - Hyperlipidemia, unspecified Category: Medical Plan: Continue current regimen Plan Follow-up in 3 months. Sooner if needed. Labs prior. Patient understands and agrees with the plan. Orders: Orders Comprehensive [place]. Panel Fast Today E11.69 - Type 2 diabetes mellitus with other specified complication, E78.5 - Hyperlipidemia, unspecified, N52.1 - Erect ile dysfunction due to diseases classified elsewhere Hemoglobin A1c Today E11.69 - Type 2 diabetes mellitus with other specified complication, E78.5 - Hyperlipidemia, unspecified, N52.1 - Erectile dysfunction due to diseases classified elsewhere Microalbumin, Random (w Creat) Today E11.69 - Type 2 diabetes mellitus with other specified complication, E78.5 - Hyperlipidemia, unspecified, N52.1 - Erectile dysfunction due to diseases classified elsewhere Medications: Refilled tirzepatide (Mounjaro) 2.5 mg (0.5 mL) subcut QWEEK 12 weeks 6 mL 1RF E11.9 - Type 2 diabetes mellitus without complications Coding Level of Care Code Est Pt Level 4 (04042) Complex EM visit Add On G2211 Diagnoses Erectile dysfunction associated with type 2 diabetes mellitus E11.69; N52.1 Dyslipidemia E78.5
[2023-09-26 14:02] VITALS: BP 108/76; PULSE 75; BMI 23.2
[2023-09-26 14:12] LABS: Glucose, Whole Blood 180 mg/dL (60-115)
== END 2023-09-26 14:32 | disposition home or self-care (01) ==
PROVIDERS: PCP Nurse Practitioner Family; Visit Provider Physician Assistant
DX: E11.69 Type 2 diabetes mellitus with other specified complication (principal); N52.1 Erectile dysfunction due to diseases classified elsewhere; E78.5 Hyperlipidemia, unspecified
CPT/HCPCS: 99214

== ENCOUNTER → 2023-09-26 13:59 | Outpatient (BNVA) | payer BC, SELFPAY | PROVIDERS: PCP Nurse Practitioner Family; Visit Provider Physician Assistant | DX: E11.69 Type 2 diabetes mellitus with other specified complication (principal); N52.1 Erectile dysfunction due to diseases classified elsewhere; E78.5 Hyperlipidemia, unspecified | CPT/HCPCS: 82947 ==

== ENCOUNTER 2023-12-01 06:22 | Outpatient (REF) | payer BC, SELFPAY ==
[2023-12-01 10:32] LABS: MANUAL DIFF FLAG NO
[2023-12-01 10:41] LABS: Basophils Percent Auto 0.6 % (0-2); Eosinophils Absolute Auto 0.3 X10*3/uL (0.0-0.4); Eosinophils Percent Auto 5.7 % (0-4); Hematocrit 37.1 % (42.0-52.0); Hemoglobin 12.5 g/dl (14.0-18.0); Imm Gran Abs Auto 0.01 X10*3/uL (0.00-0.03); Imm Gran Pct Auto 0.2 % (0.0-0.4); Lymphocytes Absolute Auto 1.9 X10*3/uL (1.2-4.9); Lymphocytes Percent Auto 35.4 % (20-40); Mean Corpuscular HGB Conc 33.7 g/dl (31.0-36.0); Mean Corpuscular Hemoglobin 31.4 pg (27.0-33.0); Mean Corpuscular Volume 93.2 fL (80.0-98.0); Mean Platelet Volume 10.2 fL (9.4-12.4); Monocytes Absolute Auto 0.6 X10*3/uL (0.1-1.2); Monocytes Percent Auto 11.7 % (2-11); Neutrophils Absolute Auto 2.5 x10*3/uL (2.0-8.3); Neutrophils Percent Auto 46.4 % (45-73); Platelet Count 202 X10*3/uL (160-400); Red Blood Count 3.98 X10*6/uL (4.60-5.80); Red Cell Distribution Width 12.4 % (11.0-16.0); White Blood Count 5.5 X10*3/uL (4.8-10.8)
[2023-12-01 10:59] LABS: Appearance Urine Clear; Color Urine Yellow; Glucose Urine UA Negative (Negative); Leukocyte Esterase Urine Negative (Negative); Nitrite Urine Negative (Negative); PH 6.5 (5.0-9.0); Urine Blood Negative (Negative); Urine Ketones Negative (Negative); Urine Protein Negative (Neg-Trace)
[2023-12-01 11:09] LABS: Alanine Aminotransferase 23 U/L (0-40); Albumin Level 4.1 g/dL (3.5-5.0); Alkaline Phosphatase 40 U/L (39-117); Anion Gap 11 (12-20); Aspartate Amino Transferase 23 U/L (5-37); Bilirubin Total 0.3 mg/dL (0.0-1.0); Blood Urea Nitrogen 15 mg/dL (9-16); Calcium 9.4 mg/dL (8.4-10.2); Carbon Dioxide 28 mmol/L (22-29); Chloride 106 mmol/L (96-108); Cholesterol 148 mg/dL (<200); Estimated Glomerular Filt Rate > 60; Glucose Fasting 98 mg/dL (60-99); HDL Cholesterol 52 mg/dL (>40); LDL Cholesterol Calculated 84 mg/dL (<100); Potassium 4.7 mmol/L (3.3-5.1); Sodium 140 mmol/L (135-145); Total Protein 6.8 g/dL (6.5-8.0); Triglycerides 64 mg/dL (<150)
[2023-12-01 11:22] LABS: Estimated Average Glucose 134 mg/dL; Hemoglobin A1C 145.0341 umol/L; Hemoglobin A1c % 6.3 % (<6.0)
[2023-12-01 11:27] LABS: Prostate Specific Antigen Scr 1.48 ng/mL (<0.05-4.0)
[2023-12-01 11:29] LABS: Microalbumin Urine < 5.0 mg/L
[2023-12-01 11:30] LABS: TSH reflex Free T4 3.38 uIU/mL (0.32-4.0)
== END 2023-12-01 06:23 | disposition home or self-care (01) ==
LOC: HO.HMGCLDS 06:22
PROVIDERS: PCP Nurse Practitioner Family; Visit Provider Nurse Practitioner Family
DX: E11.9 Type 2 diabetes mellitus without complications (principal); E78.5 Hyperlipidemia, unspecified; E11.69 Type 2 diabetes mellitus with other specified complication; N52.1 Erectile dysfunction due to diseases classified elsewhere; Z12.5 Encounter for screening for malignant neoplasm of prostate
CPT/HCPCS: 36415; 80053; 80061; 81003; 82043; 82570; 83036; 84153; 84443; 85025

== ENCOUNTER 2023-12-08 14:56 | Outpatient (AMB) | payer BC, SELFPAY ==
[2023-12-08 15:02] VITALS: BP 118/70; PULSE 68; O2SAT 97; BMI 22.9
--- NOTE | 2023-12-08 15:02 | A.OFFPC_ITS ---
Vital Signs 12/08/23 15:02 Height 5 ft 11 in Weight 164 lb BMI 22.9 BP 118/70 Blood Pressure Location Rt brachial Position Sitting Pulse 68 Pulse Source Pulse Oximeter Pulse Oximetry (%) 97 Oxygen Delivery Method Room Air Intake Visit Reasons: Annual PE Intake Note: pt is here for annual exam Cluster Bore Operator Required: No Accompanied by: Self / Same As Patient Allergies No Known Allergies Allergy (Verified 12/08/23 17:14) Medication List - Last Reconciled 12/08/23 by JANES Carlson atorvastatin 80 mg (2 x 40 mg) PO QPM blood sugar diagnostic As directed blood-glucose meter,continuous (Dexcom G6 Client Services Representative) As directed blood-glucose meter,continuous (Dexcom G6 Client Services Representative) As directed blood-glucose sensor (Dexcom G6 Sensor device) As directed blood-glucose transmitter (Dexcom G6 Transmitter device) As directed glucagon 3 mg/actuation (Baqsimi) 3 mg intranasal ONCE insulin glargine (Lantus Solostar U-100 Insulin) 15 units (0.15 mL) subcut QAM metformin ER 1,000 mg (2 x 500 mg) PO QPM 90 days pen needle, diabetic (BD Jojo 2nd Gen Pen Needle) USE DIRECTED sildenafil 100 mg PO ONCE PRN 30 days tadalafil 5 mg PO DAILY 90 days tirzepatide (Mounjaro) 2.5 mg (0.5 mL) subcut QWEEK 12 weeks Tobacco use date assessed: 12/08/23 Dental Screening Dental Screen Date: 12/08/23 Did you have a dental visit in the last 12 months?: Yes Did you have a dental problem in the last 6 months where you did not have access to dental care?: No Was dental information given to patient?: Patient has dentist HPI Annual PE HPI Details Pt is here for a PE. Labs were already performed. Cologuard is up to date. PSA is up to date. Denies dribbling with urination, weak stream, and frequent nocturia. Pt is a diabetic, he was seeing endo but would not like to right now. Pt does have anemia. He denies any bleeding or excessive fatigue. PFSH Medical History Dyslipidemia Diabetes Surgical History No pertinent past surgical history Family History Father No problems noted. Mother Dementia Sister No problems noted. Social History Housing: House Alcohol intake: current Patient Tobacco Use Status: Never used Tobacco e-Cigarette/Vaping Use: Never Used Second Hand Smoke Exposure: No service: Yes Current occupational status: employed Current occupation: [employer] Current occupational exposures/hazards: Yes Cognitive needs: No Hearing needs: No Vision needs: Yes Questionnaire PHQ-9 Over the last 2 weeks, how often have you been bothered by any of the following problems? 1. Little interest or pleasure in doing things: not at all 2. Feeling down, depressed, or hopeless: not at all 3. Trouble falling or staying asleep, or sleeping too much: not at all 4. Feeling tired or having little energy: not at all 5. Poor appetite or overeating: not at all 6. Feeling bad about yourself - or that you are a failure or have let yourself or your family down: not at all 7. Trouble concentrating on things, such as reading the newspaper or watching television: not at all 8. Moving or speaking so slowly that other people could have noticed. Or the opposite - being so fidgety or restless that you have been moving around a lot more than usual: not at all 9. Thoughts that you would be better off or of hurting yourself in some way: not at all Total score: 0 Depression Screening Interpretation: Negative Depression Screening Done: Yes 77282 - PHQ-9 Billing: Yes Source: Developed by Drs. Huey Nava, Vivian Kwan, Larry Mcahado and colleagues, with an educational alisia from [employer] Thrive Questionnaire Date Thrive assessed: 12/08/23 I am a: Patient What is your living situation today?: I have a steady place to live Within the past 12 months, did the food you bought not last and you didn't have the money to get more?: Never true Within the past 12 months, did you worry whether your food would run out before you got money to buy more?: Never true Do you have trouble paying for medicines?: No Do you have trouble getting transportation to medical appointments?: No Do you have trouble paying your heating and electricity bill?: No Do you have trouble taking care of your child, family member or friend?: No Do you have trouble with day-to-day activities such as bathing, preparing meals, shopping, managing finances, etc.?: No Are you currently unemployed and looking for a job?: No Are you interested in more education?: No Please select the resources that you would like help with: None Currently or been in a relationship where the following occur: No concerns re ported THRIVE Score: 0 AUDIT C Alcohol Use Questionnaire (AUDIT-C) 1. How often do you have a drink containing alcohol?: 2-4 times a month 2. How many drinks containing alcohol do you have on a typical day when you are drinking?: 3 or 4 3. How often do you have six or more drinks on one occasion?: Less than monthly Total Score: 4 Score Reviewed/Action Taken: Yes CHEMO-7 AMB Questionnaire CHEMO-7 Date CHEMO - 7 assessed: 12/08/23 Feeling nervous, anxious, or on edge: 0 = Not at all Not being able to stop or control worryin = Not at all Worrying too much about different things: 0 = Not at all Trouble relaxin = Not at all Being so restless that it is hard to sit still: 0 = Not at all Becoming easily annoyed or irritable: 0 = Not at all Feeling afraid as if something awful might happen: 0 = Not at all Total CHEMO-7 score (0-4 normal; 5-9 mild; 10-14 moderate; 15-21 severe): 0 Source: Developed by Drs. Huey Nava, Vivian Kwan, Larry Machado and colleagues, with an educational alisia from [employer] CHEMO-7 Assessment Billing CHEMO-7 Assessment Tool: CHEMO-7 Assessment 14933 Review of Systems Const Denies chills and Denies fever(s) Eyes Denies blurry vision ENT Denies vertigo, Denies dizziness and Denies sore throat Card Denies chest pain at rest, Denies chest pain with activity, Denies diaphoresis, Denies dyspnea and Denies dyspnea on exertion Resp Denies cough, Denies dyspnea, Denies dyspnea on exertion and Denies wheezing GI Denies abdominal pain, Denies melena, Denies hematochezia, Denies constipation, Denies diarrhea and Denies loose stools Denies hematuria Musc Denies numbness and Denies tingling Skin/Breast Denies lesions Neuro Denies vertigo, Denies dizziness, Denies numbness and Denies tingling Psych Denies anxiety, Denies depression, Denies homicidal ideation, Denies suicidal ideation and Denies other (substance abuse) Aller/Immun Denies wheezing Physical exam (Primary Care) Vital Signs: Last Vital Signs Pulse 68 12/08/23 15:02 BP 118/70 12/08/23 15:02 Pulse Ox 97 12/08/23 15:02 Oxygen Delivery Method Room Air 12/08/23 15:02 BMI result Body Mass Index 22.9 Tobacco/Smoking Status: Tobacco use Status Tobacco use date assessed 12/08/23 12/08/23 15:04 Patient Tobacco Use Status Never used Tobacco 12/08/23 15:04 e-Cigarette/Vaping Use Never Used 12/08/23 15:04 PHQ-9: PHQ-9 Score PHQ-9: Total score 0 12/08/23 15:23 Depression Screening Interpretation: Negative Thrive Assessment: Date of Thrive Assessment Date Thrive assessed 12/08/23 12/08/23 15:04 Currently or been in a relationship where the following occur: No concerns reported Const General: cooperative Nutritional Appearance: well nourished Orientation/consciousness: patient oriented x3 HENMT Head: Yes normal to inspection, Yes normocephalic and Yes atraumatic Ears: TM's normal bilaterally Eyes General: appearance normal, both eyes and all related structures Alignment and Position: alignment normal and position normal Neck Neck: Yes normal visual inspection, Yes no lymphadenopathy and Yes supple Resp Effort & Inspection: normal respiratory effort Auscultation: clear to auscultation bilaterally Cardio Rate: regular rate Rhythm: regular rhythm Heart sounds: S1 normal heart sound present, S2 normal heart sound present and no murmurs GI Palpation (GI): Soft to palpation and nontender Auscultation: normal bowel sounds Other: small left inguinal hernia, refused JOBY Male General Exam: Yes normal external exam Penis: normal penis Scrotum: scrotum normal and testes descended bilaterally Testes: no testicular mass Skin Rashes: no rashes Neuro General: patient oriented x3, moves all extremities, no focal motor deficits and deep tendon reflexes 2+ bilaterally Romberg Test: Negative Psych Appearance: grossly normal Mental Status: mental status grossly normal Speech and movement: Normal speech and movement present Affect: normal affect Attitude: cooperative Thought process: Normal thought process present Thought content: Normal thought content present Insight: Good insight present (Psych) Judgement: Good judgement present (Psych) Assessment and Plan Assessment & Plan (1) Physical exam: Code(s): Z00.00 - Encounter for general adult medical examination without abnormal findings Plan: Labs already performed (2) Anemia: Code(s): D64.9 - Anemia, unspecified Plan: will cont to monitor (3) Diabetes: Code(s): E11.9 - Type 2 diabetes mellitus without complications Plan: was seeing endo, fairly well controlled, pt will follow up here Plan The patient agreed to the use of a medical billing coordinator for this encounter. Scribed for JANES Doherty by Roselyn Walden medical billing coordinator, on 12/08/2023 at 15:20 EST. Orders: Orders Ferritin Today Z00.00 - Encounter for general adult medical examination without abnormal findings Hemoglobin Electrophoresis Today D64.9 - Anemia, unspecified Complete Blood Count Auto Diff Today Z00.00 - Encounter for general adult medical examination without abnormal findings Vitamin B12 and Folate Today Z00.00 - Encounter for general adult medical examination without abnormal findings IRON PROFILE Today Z00.00 - Encounter for general adult medical examination without abnormal findings Coding Level of Care Code Est Pt Prev Care 40-64y(91173) Diagnoses Physical exam Z00.00 Anemia D64.9 Diabetes E11.9 Additional Codes CHEMO-7 Assessment Billing - CHEMO-7 Assessment Tool: CHEMO-7 Assessment 11265 ([id number])
== END 2023-12-08 16:27 | disposition home or self-care (01) ==
PROVIDERS: PCP Nurse Practitioner Family; Visit Provider Nurse Practitioner Family
DX: Z00.00 Encounter for general adult medical examination without abnormal findings (principal); D64.9 Anemia, unspecified; E11.9 Type 2 diabetes mellitus without complications
CPT/HCPCS: 99396

== ENCOUNTER 2024-01-09 14:53 | Outpatient (AMB) | payer BC, SELFPAY ==
--- NOTE | 2024-01-09 14:55 | MHC.OFFVIS ---
Vital Signs 01/09/24 14:56 Height 5 ft 11 in Weight 163 lb 12.855 oz BMI 22.8 BP 96/62 Blood Pressure Location Lt brachial Position Sitting Pulse 74 Pulse Source Pulse Oximeter Intake Visit Reasons: T2DM/CONFIRMED Intake Note: Patient presents today for D2MT follow up visit. Last Diabetic Eye exam: 10/2023 Last Podiatry Visit:Doesn't have one Random Glucose: 139 mg/dl HgA1c: 6.3% 12/01/23 Machine Marker Required: No Accompanied by: Self / Same As Patient Allergies No Known Allergies Allergy (Verified 01/09/24 15:00) Medication List - Last Reconciled 01/09/24 by My Anna PA-C atorvastatin 80 mg (2 x 40 mg) PO QPM blood sugar diagnostic As directed blood-glucose meter,continuous (Dexcom G6 Hydroelectric Plant Structural Engineer) As directed blood-glucose meter,continuous (Dexcom G6 Hydroelectric Plant Structural Engineer) As directed blood-glucose sensor (Dexcom G6 Sensor device) As directed blood-glucose transmitter (Dexcom G6 Transmitter device) As directed glucagon 3 mg/actuation (Baqsimi) 3 mg intranasal ONCE insulin glargine (Lantus Solostar U-100 Insulin) 15 units (0.15 mL) subcut QAM metformin ER 1,000 mg (2 x 500 mg) PO QPM 90 days pen needle, diabetic (BD Jojo 2nd Gen Pen Needle) USE DIRECTED sildenafil 100 mg PO ONCE PRN 30 days tadalafil 5 mg PO DAILY 90 days tirzepatide (Mounjaro) 2.5 mg (0.5 mL) subcut QWEEK 12 weeks HPI HPI T2DM/CONFIRMED: Details: Patient is a 53-year-old male who presents today for a diabetic follow-up. Endo: A1c was 6.3. He is currently on metformin 1000 mg twice a day, Mounjaro 2.5 mg weekly, Lantus 15 units daily. Did not bring in Dexcom car mechanic helper to be reviewed. Denies any hypoglycemic events. Treats hypoglycemia with glucagon States hyperglycemic events are also rare. He has no acute concerns today. He has been active and has been monitoring his blood sugars closely. [facility] Medical History Dyslipidemia Diabetes Surgical History No pertinent past surgical history Family History Father No problems noted. Mother Dementia Sister No problems noted. Social History Housing: House Alcohol intake: current Patient Tobacco Use Status: Never used Tobacco e-Cigarette/Vaping Use: Never Used Second Hand Smoke Exposure: No service: Yes Current occupational status: employed Current occupation: [employer] Current occupational exposures/hazards: Yes Cognitive needs: No Hearing needs: No Vision needs: Yes Physical Exam Const Orientation/consciousness: patient oriented x3 Neck Neck: Yes no lymphadenopathy Thyroid: Thyroid normal Carotids: no bruits Resp Auscultation: clear to auscultation bilaterally Cardio Rate: regular rate Rhythm: regular rhythm Heart sounds: S1 normal heart sound present and S2 normal heart sound present Peripheral pulses: dorsalis pedis present Neuro General: patient oriented x3, gait normal and no focal motor deficits Extrem Other: Monofilament sensation intact bilaterally. Vibratory sensation intact bilaterally. Skin intact. General: Yes normal to inspection Results Reviewed Results Reviewed: Laboratory Tests 12/01/23 06:31 Sodium 140 Potassium 4.7 Chloride 106 Carbon Dioxide 28 Anion Gap 11 L BUN 15 Creatinine 1.07 Estimated GFR > 60 Fasting Glucose 98 Hemoglobin A1c % 6.3 H AST 23 ALT 23 Triglycerides 64 Cholesterol 148 LDL Cholesterol, Calc 84 HDL Cholesterol 52 Urine Creatinine 110.30 Urine Microalbumin < 5.0 Microalb/Creat Ratio TNP Assessment & Plan Assessment & Plan (1) Controlled type 2 diabetes mellitus with insulin therapy: Code(s): E11.9 - Type 2 diabetes mellitus without complications; Z79.4 - group home (current) use of insulin Category: Medical Plan: Continue current regimen. Follow up in 3 months. Sooner if needed. Labs prior to appointment. Patient understands and agrees with the plan. Coding Level of Care Code Est Pt Level 4 (27491) Diagnoses Controlled type 2 diabetes mellitus with insulin therapy E11.9; Z79.4
[2024-01-09 14:56] VITALS: BP 96/62; PULSE 74; BMI 22.8
[2024-01-09 15:06] LABS: Glucose, Whole Blood 139 mg/dL (60-115)
== END 2024-01-09 15:22 | disposition home or self-care (01) ==
PROVIDERS: PCP Nurse Practitioner Family; Visit Provider Physician Assistant
DX: E11.9 Type 2 diabetes mellitus without complications (principal); Z79.4 Long term (current) use of insulin

== ENCOUNTER → 2024-01-09 14:53 | Outpatient (BNVA) | payer BC, SELFPAY | PROVIDERS: PCP Nurse Practitioner Family; Visit Provider Physician Assistant | DX: E11.9 Type 2 diabetes mellitus without complications (principal); Z79.4 Long term (current) use of insulin | CPT/HCPCS: 82947 ==

== ENCOUNTER 2024-02-13 15:32 | Outpatient (AMB) | payer BC, SELFPAY ==
--- NOTE | 2024-02-13 15:34 | A.OFFVIS_ITS ---
Intake Visit Reasons: 6m follow up Intake Note: Patient is Present for Follow Up Erectile Dys Urology Medication: Sildenafil, Tadalafil Antibiotic Allergies: None Blood Thinners: None Recent PSA: 11/2023 PSA: 1.48 Allergies No Known Allergies Allergy (Verified 01/09/24 15:00) HPI Comments Details: Navin is a pleasant male. He is seen for the following urologic conditions - erectile dysfunction in setting of diabetes Good response to daily tadalafil with on demand sildenafil Continue with 5mg tadalafil with on demand high-dose sildenafil Six month f/u labs tele Erectile dysfunction Diabetic Last HBA1c 10/04 7.1 Response to medication - does obtain erection but does not maintain Response does not very with increasing dose Baseline labs 11/01 T 500, well controlled HbA1c, 06/07 T 475 FT 68 12/05 P 1.5 Discussion about maximum dose sildenafil 200 mg Other options include constriction band, vacuum pump, injectable therapy and penile prosthetic PFSH Medical History Dyslipidemia Diabetes Surgical History No pertinent past surgical history Family History Father No problems noted. Mother Dementia Sister No problems noted. Social History Housing: House Alcohol intake: current Patient Tobacco Use Status: Never used Tobacco e-Cigarette/Vaping Use: Never Used Second Hand Smoke Exposure: No service: Yes Current occupational status: employed Current occupation: [employer] Current occupational exposures/hazards: Yes Cognitive needs: No Hearing needs: No Vision needs: Yes Review of Systems Const Denies chills and Denies fever(s) Card Reports no additional complaints and Denies syncope Resp Denies cough GI Denies abdominal pain and Denies heartburn Reports as per HPI and Denies change in libido Neuro Denies syncope Psych Denies change in libido Endo Denies change in libido Physical Exam Const General: cooperative, healthy appearing, comfortable and no acute distress Orientation/consciousness: patient oriented x3 HEENT Face and sinus: Yes normal facial exam Mouth: moist mucous membranes Neck Neck: Yes normal visual inspection, Yes full ROM and Yes trachea midline Chest Chest palpation & inspection: normal inspection of the chest Resp Effort & Inspection: normal respiratory effort, able to speak in complete sentences and no respiratory distress GI Inspection: Yes normal to inspection Back/Spine/Pelvis Cervical Spine: normal cervical lordosis Thoracic/Lumbar Spine: thoracic and lumbar spine normal to inspection Skin General skin exam: no rashes or lesions noted Neuro General: patient oriented x3, gait normal, tone normal and moves all extremities Extrem General: Yes normal to inspection and Yes capillary refill normal Assessment & Plan Assessment & Plan (1) Erectile dysfunction associated with type 2 diabetes mellitus: Code(s): E11.69 - Type 2 diabetes mellitus with other specified complication; N52.1 - Erectile dysfunction due to diseases classified elsewhere Category: Medical Plan Six-month follow-up testosterone Orders: Orders Testosterone, Total 6 Months E11.69 - Type 2 diabetes mellitus with other specified complication, N52.1 - Erectile dysfunction due to diseases classified elsewhere Patient Instructions: Imaging studies, laboratory and physical exam results were discussed and reviewed in detail. No major barriers to patient understanding were identified. An opportunity to ask questions regarding the treatment plan was provided. All questions were answered. The patient expressed understanding and agreement with the above treatment plan. The patient is aware they should contact our office by phone for worsening of their current condition or the appearance of new urologic symptoms. Compliance is encouraged with any medications and followup testing that is ordered. It is a privilege to participate in the urologic care of your patient. If you have any questions or concerns regarding treatment for the above conditions, or other urologic issues, please do not hesitate to contact me. The office telephone contact is [phone]. This note is constructed using voice recognition software. While every effort has been made to ensure accuracy physician/allergy/immunology errors may have been included. Yours sincerely, Dr Nick Zuelta MD, [facility] - Urology Providers of Expert, Compassionate Care for the Genitourinary System Coding Level of Care Code Est Pt Level 3 (08518) Diagnoses Erectile dysfunction associated with type 2 diabetes mellitus E11.69; N52.1
== END 2024-02-13 15:51 | disposition home or self-care (01) ==
LOC: HO.HUSH 15:33
PROVIDERS: PCP Nurse Practitioner Family; Visit Provider Urology
DX: E11.69 Type 2 diabetes mellitus with other specified complication (principal); N52.1 Erectile dysfunction due to diseases classified elsewhere
CPT/HCPCS: 99213

== ENCOUNTER → 2024-02-13 15:32 | Outpatient (BNVA) | payer BC, SELFPAY | PROVIDERS: PCP Nurse Practitioner Family; Visit Provider Urology ==

== ENCOUNTER 2024-09-29 08:05 | Outpatient (REF) | payer BC, SELFPAY ==
--- OUTSIDE RECORDS SUMMARY | 2024-09-29 08:17 | XMS_ITS | Continuity of Care Document ---
Author Organization [facility] Address [address] [address] Insurance Providers Payer Plan Claims Address Claims Phone Policy Number Group Number Relation Employer Guarantor Name Guarantor Guarantor Address Guarantor Phone HMO Blue O BLUE [employer] CLAIMS, [address], [place] [address] tel:[phone] [id number] Blue Cross Blue Plans Blue Cross Blue Plans [id number] BLUE CROSS HMO Blue Cross HMO [id number] Problems Condition ICD9 code ICD10 code SNOMED code Start Date End Date S tatus Encounter for screening for other metabolic disorders Z13.228 Results Test Result Date/Time Value / Unit Interp. Refere nce Range C-Peptide, Serum[[id number]] Collected: 06/14/2024 11:42 PM Specimen Received: 06/14/2024 05:00 AM Source: [facility] C-Peptide, Serum [[id number]] 06/15/2024 12:26 PM 1.2 ng/mL 1.1-4.4 ng/mL C-Peptide reference interval is for fasting patients. Glucose[[id number]] Collected: 06/14/2024 11:42 PM Specimen Received: 06/14/2024 05:00 AM Source: [facility] Glucose [[id number]] 06/15/2024 11:29 AM 133 mg/dL H 70-99 mg/dL Comp. Metabolic Panel (14)[[id number]] Collected: 05/31/2024 05:03 PM Specimen Received: 05/31/2024 05:00 AM Source: [facility] Glucose [[id number]] 06/01/2024 05:15 AM 104 mg/dL H 70-99 mg/dL BUN [[id number]] 06/01/2024 05:17 AM 18 mg/dL 6-2 4 mg/dL Creatinine [[id number]] 06/01/2024 05:22 AM 0.94 mg/dL 0.76-1.27 mg/dL eGFR [[id number]] 06/01/2024 05:22 AM 96 mL/min/1.73 >59 mL/min/1.73 BUN/Creatinine Ratio [[id number]] 06/01/2024 05:22 AM 19 9-20 Sodium [[id number]] 06/01/2024 05:14 AM 143 mmol/L 134-144 mmol/L Potassium [[id number]] 06/01/2024 05:15 AM 4.7 mmol/L 3.5-5.2 mmol/L Chloride [[id number]] 06/01/2024 05:14 AM 106 mmol/L 96-106 mmol/L Carbon Dioxide, Total [[id number]] 06/01/2024 05:21 AM 22 mmol/L 20-29 mmol/L Calcium [[id number]] 06/01/2024 05:15 AM 9.4 mg/dL 8.7-10.2 mg/dL Protein, Total [[id number]] 06/01/2024 05:17 AM 6.6 g/dL 6.0-8.5 g/dL Albumin [[id number]] 06/01/2024 05:15 AM 4.4 g/dL 3.8-4.9 g/dL Globulin, Total [[id number]] 06/01/2024 05:17 AM 2.2 g/dL 1.5-4.5 g/dL Bilirubin, Total [[id number]] 06/01/2024 05:15 AM 0.5 mg/dL 0.0-1.2 mg/dL Alkaline Phosphatase [[id number]] 06/01/2024 05:16 AM 52 IU/L 44-121 IU/L AST (SGOT) [[id number]] 06/01/2024 05:16 AM 24 IU/L 0-40 IU/L ALT (SGPT) [[id number]] 06/01/2024 05:17 AM 22 IU/L 0-44 IU/L Lipid Panel[[id number]] Collected: 05/31/2024 05:03 PM Specimen Received: 05/31/2024 05:00 AM Source: [facility] Cholesterol, Total [[id number]] 06/01/2024 05:25 AM 162 mg/dL 100-199 mg/d L Triglycerides [[id number]] 06/01/2024 05:25 AM 75 mg/dL 0-149 mg/dL HDL Cholesterol [[id number]] 06/01/2024 05:25 AM 52 mg/dL >39 mg/dL VLDL Cholesterol Chris [[id number]] 06/01/2024 05:25 AM 14 mg/dL 5-40 mg/dL LDL Chol Calc ([facility]) [[id number]] 06/01/2024 05:25 AM 96 mg/dL 0-99 mg/dL Albumin/Creatinine Ratio,Uri ne[[id number]] Collected: 05/31/2024 05:03 PM Specimen Received: 05/31/2024 05:00 AM Source: [facility] Creatinine, Urine [[id number]] 06/02/2024 12:14 AM 132.4 mg/dL Not Estab. m g/dL Albumin, Urine [[id number]] 06/02/2024 12:19 AM 3.0 ug/mL Not Estab. ug/mL Alb/Creat Ratio [[id number]] 06/02/2024 12:19 AM 2 mg/g creat 0-29 mg/g creat Normal: 0 - 29 Moderately i ncreased: 30 - 300 Severely increased: >300 Hemoglobin A1c[[id number]] Collected: 05/31/2024 05:03 PM Specimen Received: 05/31/2024 05:00 AM Source: [facility] Hemoglobin A1c [[id number]] 06/01/2024 03:25 AM 7.5 % H 4.8-5.6 % . Prediabetes: 5.7 - 6.4 Kina betes: >6.4 Glycemic control for adults with diabetes: 7.0 C-Peptide, Serum[[id number]] Collected: 05/31/2024 05:03 PM Specimen Received: 05/31/2024 05:00 AM Source: [facility] C-Peptide, Serum [[id number]] 06/01/2024 12:41 PM 0.5 ng/mL L 1.1-4.4 ng/mL C-Peptide reference interval is for fasting patients. Allergies, adverse reactions, alerts No known allergies and adverse reactions Medications No administered medications reported Vital Signs No vital signs reported Social History No smoking Hx information available
[2024-10-03 14:17] LABS: Testosterone, Total 640 ng/dL (250-1100)
== END 2024-09-29 08:06 | disposition home or self-care (01) ==
LOC: HO.HMGCLDS 08:05
PROVIDERS: PCP Nurse Practitioner Family; Visit Provider Urology
DX: E11.69 Type 2 diabetes mellitus with other specified complication (principal); N52.1 Erectile dysfunction due to diseases classified elsewhere
CPT/HCPCS: 36415; 84403

== ENCOUNTER 2024-10-07 08:33 | Outpatient (AMB) | payer BC, SELFPAY ==
--- NOTE | 2024-10-07 08:33 | MHC.OFFVIS ---
Intake Visit Reasons: 6m follow up/ Testo(testo?) Intake Note: Patient is present for 6M/TESTO Urology Medication:SILDENAFIL,TADALAFIL Antibiotic Allergy:NONE Blood Thinner:NONE Linter Tender Required: No Allergies No Known Allergies Allergy (Verified 10/07/24 08:34) HPI Comments Details: Navin is a pleasant male. He is seen for the following urologic conditions - erectile dysfunction in setting of diabetes Telemedicine Evaluation 15 min Consultation [facility] Donovan Video Six-month follow-up T remained stable - 10/06 640 Metabolic evaluation appears to be improving Good response to daily tadalafil with on demand sildenafil Continue with 5mg tadalafil with on demand high-dose sildenafil Erectile dysfunction Diabetic Last HBA1c 10/04 7.1, 12/05 6.3 Response to medication - does obtain erection but does not maintain Response does not very with increasing dose Baseline labs 11/01 T 500, well controlled HbA1c, 06/07 T 475 FT 68 12/05 P 1.5 Discussion about maximum dose sildenafil 200 mg Other options include constriction band, vacuum pump, injectable therapy and [facility]ile [facility] Medical History Dyslipidemia Diabetes Surgical History No pertinent past surgical history Family History Father No problems noted. Mother Dementia Sister No problems noted. Social History Housing: House Alcohol intake: current Patient Tobacco Use Status: Never used Tobacco e-Cigarette/Vaping Use: Never Used Second Hand Smoke Exposure: No service: Yes Current occupational status: employed Current occupation: [employer] Current occupational exposures/hazards: Yes Cognitive needs: No Hearing needs: No Vision needs: Yes Review of Systems Const All systems reviewed & are unremarkable except as noted in HPI and below Reports no additional complaints Resp Reports no additional complaints GI Reports no additional complaints Reports as per HPI Musc Reports no additional complaints Physical Exam Telemedicine evaluation Appropriate responses Regular breathing rate and rhythm HEENT Head: Yes normal to inspection Ears: hearing grossly normal bilaterally Eyes General: appearance normal, both eyes and all related structures Neck Neck: Yes normal visual inspection Chest Chest palpation & inspection: normal inspection of the chest Resp Effort & Inspection: normal respiratory effort and able to speak in complete sentences Telehealth Telehealth Telehealth Platform: [facility] Location of provider rendering services: practice address Location of patient: address on file Patient Identification confirmed using: Name, : Yes Telehealth method: video Patient verbally consented to treatment: Yes Patient verbally consented to billing insurance company: Yes Patient informed of any privacy concerns related to visit: Yes Minutes spent on Phone/Video with Pt.: 15 Assessment & Plan Assessment & Plan (1) Erectile dysfunction associated with type 2 diabetes mellitus: Code(s): E11.69 - Type 2 diabetes mellitus with other specified complication; N52.1 - Erectile dysfunction due to diseases classified elsewhere Category: Medical Plan Six-month follow-up Continue medication Orders: Orders Testosterone, Total 10/04/24 E11.69 - Type 2 diabetes mellitus with other specified complication, N52.1 - Erectile dysfunction due to diseases classified elsewhere Prostate Specific Antigen 6 Months E11.69 - Type 2 diabetes mellitus with other specified complication, N52.1 - Erectile dysfunction due to diseases classified elsewhere Medications: Refilled tadalafil 5 mg PO DAILY 90 tabs 1RF sexual activity 90 days E11.69 - Type 2 diabetes mellitus with other specified complication, N52.1 - Erectile dysfunction due to diseases classified elsewhere sildenafil administer 30 minutes to 4 hours before activity 100 mg PO ONCE PRN 30 tabs 2RF sexual activity 30 days E11.69 - Type 2 diabetes mellitus with other specified complication, N52.1 - Erectile dysfunction due to diseases classified elsewhere Patient Instructions: This note is constructed using voice recognition software. While every effort has been made to ensure accuracy model builder errors may have been included. Imaging studies, laboratory and physical exam results were discussed and reviewed in detail. No major barriers to patient understanding were identified. An opportunity to ask questions regarding the treatment plan was provided. All questions were answered. The patient expressed understanding and agreement with the above treatment plan. The patient is aware they should contact our office by phone for worsening of their current condition or the appearance of new urologic symptoms. Compliance is encouraged with any medications and followup testing that is ordered. It is a privilege to participate in the urologic care of your patient. If you have any questions or concerns regarding treatment for the above conditions, or other urologic issues, please do not hesitate to contact me. The office telephone contact is [phone]. Sincerely, Dr Nick Zuleta MD, [facility] - Urology Compassionate Specialist Care for the Genitourinary System Coding Level of Care Code Tele Est Pt Level 3 (41321) Diagnoses Erectile dysfunction associated with type 2 diabetes mellitus E11.69; N52.1
--- OUTSIDE RECORDS SUMMARY | 2024-10-07 08:56 | XMS_ITS | Data Portability ---
Author Organization [facility] Internal [facility], Telehealth Patient Home Address [address] [place] [address] Assessment No assessment recorded. Plan of Treatment Reminders Order Date Submit Date Provider Last Modified By Organization Details Last Modified Time Details Appointments None recorded. Lab microalbum in, urine 2018 [email or web address] Not available 9 08:53:32 lipid panel, blood 2018 [email or web address] Not available 9 08:53:32 CMP, serum or plasma 2018 019 [email or web address] Not available 9 08:53:32 urinalysis , dipstick 2018 [facility], [address] [place] [address], [facility] [address], [place], [address], 9 09:57:06 iron + TIBC + ferritin, serum 2018 Not available 9 09:57:07 vitamin B12, serum 2018 019 Not available 9 09:57:07 folate, serum 2018 Not available 9 09:57:07 CBC w/ diff 2018 Not available 9 09:57:07 PSA, serum or plasma 2018 019 ATHENAFAX [facility], [address] [facility], [address], [place], [address], 9 09:57:49 HbA1c (hemoglobi n A1c), blood 2018 019 [email or web address] Not available 9 08:52:14 microalbum in, urine 2018 019 hrubner Not available 9 08:14:43 HbA1c (hemoglobi n A1c), blood 2018 019 [email or web address] Not available 9 09:11:54 HbA1c (hemoglobi n A1c), blood 2018 020 [email or web address] Not available 0 08:24:56 HbA1c (hemoglobi n A1c), blood 2019 020 hrubner Not available 0 09:12:34 HbA1c (hemoglobi n A1c), blood 2019 020 [email or web address] 10 Not available 0 08:20:54 HbA1c (hemoglobi n A1c), blood 2019 020 [email or web address] 10 Not available 0 08:17:19 HbA1c (hemoglobi n A1c), blood 2019 021 [email or web address] 10 Not available 1 08:06:28 HbA1c (hemoglobi n A1c), blood 2020 021 [email or web address] 10 Not available 1 08:28:48 HbA1c (hemoglobi n A1c), blood 2020 021 hrubner Not available 1 11:17:58 HbA1c (hemoglobi n A1c), blood 2020 021 hrubner Not available 1 11:18:05 lipid panel, blood 2018 019 hrubner Not available 9 08:14:43 CMP, serum or plasma 2018 019 hrubner Not available 9 08:52:14 CMP, serum or plasma 2018 020 [email or web address] Not available 0 08:24:56 lipid panel, blood 2018 020 [email or web address] Not available 0 08:24:56 CMP, serum or plasma 2019 020 [email or web address] 10 Not available 0 08:20:54 lipid panel, blood 2019 020 [email or web address] 10 Not available 0 08:20:54 iron + TIBC + ferritin, serum 2018 019 Not available 9 11:34:34 vitamin B12, serum 2018 019 Not available 9 11:34:34 folate, serum 2018 019 Not available 9 11:34:34 fecal occult blood X 3, stool 2018 019 Not available 9 11:34:34 CBC w/ diff 2018 019 Not available 9 11:34:34 Referral colonoscop y referral 2018 019 hred Lehman Jr, MD, [address] [place] [address] [place], [address], 9 08:29:00 gastroente rologist referral 2018 019 CHELSEAENASOPHIAX Kenneth Lehman Jr, MD, [address] [facility] [place], [address], 9 13:40:47 Procedures None recorded. Surgeries None recorded. Imaging None recorded. Medication Orders atorvastat in 20 mg tablet 2018 019 [id number], [address] [place], [address], 09:30:36 Patient TargetsNo targets recorded. Patient Instructions Encounter Date Encounter Id Patient Instructions Last Modified By Organization Details Last Modified Time 12/17/2017 [id number] Continue healthy exercise [email or web address] Not available 12/17/2017 10:49:47 07/10/2018 [id number] Continue healthy lifestyle changes [facility] Not available 07/10/2018 11:11:43 11/18/2018 [id number] learning about type 2 diabetes Not available 11/18/2018 11:34:34 type 2 diabetes: care instructions Not available 11/18/2018 11:34:34 anemia: care instructions Not available 11/18/2018 11:34:34 02/19/2019 [id number] learning about type 2 [facility] - Not available 02/19/2019 09:57:07 type 2 diabetes: care instructions [facility] - Not available 02/19/2019 09:57:07 anemia: care instructions [facility] - Not available 02/19/2019 09:57:07 Reason for Referral Colonoscopy Referral for Scr eening for malignant neoplasm of colon Referring Physician: Ivania D[facility], Encounter Date: 02/19/2019 Global Regulatory Affairs Manager Referral for Screening for malignant neoplasm of colon Referring Physician: Ivania [facility], Encounter Date: 02/19/2019 Results Created Date Observation Date Name Description Value Unit Range Abnormal Flag Note LastModifiedBy Organization Detail LastModifiedTime 02/20/2002/19/2019 urina lysis , dipst ick Leukocytes Negati ve Not Available [facility] [address] [place] [address] [place], [address], 02/19/2019 09:30:57 02/20/2002/19/2019 urina lysis , dipst ick Nitrite negati ve Not Available [facility] [address] [place] [address] D, [place], [address], 02/19/2019 09:30:57 02/20/2002/19/2019 urina lysis , dipst ick Urobilinogen .2 Not Available [facility] [address] [facility] [address], [place], [address], 02/19/2019 09:30:57 02/20/2002/19/2019 urina lysis , dipst ick Protein Negati ve Not Available [facility] [address] [facility] [address], [place], [address], 02/19/2019 09:30:57 02/20/2002/19/2019 urina lysis , dipst ick pH 6.0 Not Available [facility] [address] [facility] [address], [place], [address], 02/19/2019 09:30:57 02/20/2002/19/2019 urina lysis , dipst ick Blood Negati ve Not Available [address], [place], [address], 02/19/2019 09:30:57 02/20/2002/19/2019 urina lysis , dipst ick Specific [place] 1.020 Not Available [facility] [address] [facility] [address], [place], [address], 02/19/2019 09:30:57 02/20/2002/19/2019 urina lysis , dipst ick Ketone Negati ve Not Available [facility] [address] [facility] [address], [place], [address], 02/19/2019 09:30:57 02/20/2002/19/2019 urina lysis , dipst ick Bilirubin Negati ve Not Available [facility] [address] [facility] [address], [place], [address], 02/19/2019 09:30:57 02/20/20 19 02/19/2019 urina lysis , dipst ick Glucose Negati ve Not Available [facility] [address] [facility] [address], [place], [address], 02/19/2019 09:30:57 02/20/20 19 02/19/2019 urina lysis , dipst ick Appearance Clear Not Available [address], [place], [address], 02/19/2019 09:30:57 02/20/20 19 02/19/2019 urina lysis , dipst ick Color Yellow Not Available [address], [place], [address], 02/19/2019 09:30:57 Result Notes None recorded. Problems Name Problem SNOMED Code Status Onset Date Resolution Date Notes Provider Name and Address Organization Details Recorded Time Diabetes mellitus 14638338 Active [address] [facility] 8 10:36:19 Hyperchole sterolemia 86475193 Active [address] [facility] 8 10:36:27 Type 2 diabetes mellitus 51755149 Active [address], [address], [facility] 9 11:35:05 Anemia 899824244 Active [address], [address], [facility] 9 11:35:16 Problem Notes None recorded. Medical Equipment None Reported. Allergies No known drug allergies Medications Name Sig Start Date Stop Date Status Note LastModified by Organization Details LastModified Time amoxicill in 500 mg capsule 11/18 completed Not Available Not Available Not Available prednison e 10 mg tablet 4 tabs X 2 days, 3 tabs X 3 days, 2 tabs X3 days, 1 tab x 3 days 04/22 completed Not Available Not Available Not Available atorvasta tin 20 mg tablet Take 1 tablet every day by oral route. 02/19 completed Not Available Not Available Not Available atorvasta tin 10 mg tablet 1 po qd active Not Available Not Available Not Available glipizide 10 mg tablet 11/17 completed Not Available Not Available Not Available Lantus U-100 Insulin 100 unit/mL subcutane ous solution INJECT 20 UNITS EVERY EVENING 07/10 completed Pt stopped on his own Not Available Not Available Not Available metformin 1,000 mg tablet 1 po bid active Not Available Not Available Not Available glipizide 5 mg tablet 1 po bid active Not Available Not Available Not Available BD Insulin Syringe Ultra-Fin e 1 mL 31 gauge x 5/16 active Not Available Not Available Not Available OneTouch Ultra Blue Test Strip TEST BLOOD SUGAR TWO TIMES A DAY active Not Available Not Available No t Available Flucelvax Quad (PF) 60 mcg (15 mcg x 4)/0.5 mL IM syringe active Not Available Not Available Not Available FreeStyle Elvira 14 Day Sensor kit active Not Available Not Available Not Available Vitals Date Recorded Body height Body mass index (BMI) Body weight Heart rate Oxygen saturation Oxygen saturation in Arterial blood by Pulse oximetry Systolic blood pressure Diastolic blood pressure Provider Name and Address Organization Details Last Updated DateTime 9 180.98 cm 25.7 kg/m2 56670.4 6 g 67 /min 98 % 98 % 110 mm[Hg] 70 mm[Hg] Renita Daley [facility] 9 09:09:52 Date Recorded Body height Body mass index (BMI) Body weight Heart rate Oxygen saturation Oxygen saturation in Arterial blood by Pulse oximetry Systolic blood pressure Diastolic blood pressure Provider Name and Address Organization Details Last Updated DateTime 9 180.98 cm 24.2 kg/m2 89621.3 1 g 62 /min 99 % 99 % 126 mm[Hg] 80 mm[Hg] Kortney Arevalo [facility] 9 10:54:54 Date Recorded Body mass index (BMI) Body weight Provider Name and Address Organization Details Last Updated DateTime 11/18/2018 23 kg/m2 95076.33 g Ivania SHAYAN Denton [address] [place] [address], [address], [facility] 11/18/2018 11:34:16 Date Recorded Body height Heart rate Oxygen saturation Oxygen saturation in Arterial blood by Pulse oximetry Systolic blood pressure Diastolic blood pressure Provider Name and Address Organization Details Last Updated DateTime 9 180.98 cm 62 /min 99 % 99 % 110 mm[Hg] 70 mm[Hg] Kortney Arevalo [facility] 9 11:10:49 Date Recorded Body weight Oxygen saturation Oxygen saturation in Arterial blood by Pulse oximetry Heart rate Systolic blood pressure Diastolic blood pressure Provider Name and Address Organization Details Last Updated DateTime 8 74321.6 3 g 98 % 98 % 70 /min 104 mm[Hg] 62 mm[Hg] Renita Daley [facility] 8 10:22:41 Date Recorded Body height Body mass index (BMI) Body weight Heart rate Oxygen saturation Oxygen saturation in Arterial blood by Pulse oximetry Systolic blood pressure Diastolic blood pressure Provider Name and Address Organization Details Last Updated DateTime 9 180.98 cm 23.3 kg/m2 34076.3 1 g 61 /min 98 % 98 % 100 mm[Hg] 70 mm[Hg] Kortney Arevalo [facility] 9 09:31:52 Social History Question Answer Notes LastModified by Soma Water Details LastModified Time Tobacco Smoking Status Never Smoker Not Available [facility] 02/15/2020 03:36:23 What Was The Date Of Your Most Recent Tobacco Screening? 02/19/2019 [id number] Information not available 02/15/2020 How Much Tobacco Do You Smoke? No [id number] Information not available 02/15/2020 How Many Years Have You Smoked Tobacco? 0 [id number] Information not available 02/15/2020 Sex: Unknown Functional Status Question Answer Note LastModified by Soma Water Details LastModified Time Do you or have you ever used smokeless tobacco? Never used smokeless tobacco [id number] Information not available 02/15/2020 Do you or have you ever used e-cigarettes or vape? Never used electronic cigarettes [id number] Information not available 02/15/2020 Mental Status None recorded. Family History Relationship Description Onset Age of this Age Resolved Age Notes LastModified by Organization Details LastModified Time Unspecified Relation Diabetes mellitus [email or web address] Not available 2018 14:57:29 Medical History No medical history recorded. Immunizations Vaccine Type Date Status Note Provider Nam e and Address Organization Details Recorded Time TIG 06/30/2012 completed Not Available [facility] 04/29/2019 04:02:43 Past Encounters Encounter ID Performer Location Encounter Start Date Encounter Closed Date Diagnosis/Indication Diagnosis SNOMED-CT Code Diagnosis ICD10 Code Diagnosis Note [id number] Navin Griffith [facility] Internal [facility] [address] [facility],[place] [address] 11/17/2017 14:00:12 11/18/2017 15:43:47 Contact dermatitis 43779472 L25.9 Diabetes mellitus 562353 09 E11.9 has blood slip, encouraged to complete labs [id number] Navin Clementsneal [facility] [address] [facility],[place] [address] 12/17/2017 10:15:22 12/17/2017 16:09:43 Hypercholesterolemia 51853085 E78.00 ldl 81 Diabetes mellitus 762331 09 E11.9 A1C 7.1 [id number] Navin Cantu Nacho [facility] [address] [facility],[place] [address] 04/22/2018 09:03:17 04/22/2018 17:56:50 Diabetes mellitus 23100337 E11.9 A1C 7.3 Hypercholesterolemia 136 18666 E78.00 ldl was 81 now 155, Hdl from 46-38 Active or passive immunization 055764441 Z23 Primary er ectile dysfunction 080528970 N52.9 Pt to check cost comparison with Ins. and call [id number] Navin MaurerBlanca Griffith [facility] [address] [facility],[place] [address] 07/10/2018 10:47:48 07/10/2018 16:08:18 Hypercholesterolemia 54744930 E78.00 Diabetes mellitus 389298 09 E11.9 A1C 6.7 improved [id number] Navin MaurerBlanca Starrneal [facility] [address] [facility], [place] [address] 11/18/2018 10:59:54 11/18/2018 11:45:43 Anemia 646005750 D64.9 Type 2 mykel betes mellitus 94132033 E11.9 well controlled Hypercholesterolemia 136 91113 E78.00 stopped statin wanted to see if still needed cholestero l went from 99 to 165 will restart lipitor [id number] Navin Griffith DO [facility] [address] [facility],[place] [address] 02/19/2019 09:18:51 02/19/2019 10:10:42 Adult health examination 177498369 Z00.00 Active or passive immunization 806900925 Z23 Anemia 085986488 D64.9 Type 2 mykel betes mellitus 78050144 E11.9 well controlled Hypercholesterolemia 136 18716 E78.00 stopped statin wanted to see if still needed cholestero l went from 99 to 165 will restart lipitor Screening for malignant neoplasm of colon 859831213 Z12.11 Screening for malignant neoplasm of prostate 567999898 Z12.5 Health Concerns Section Related Observation LastModified by Organization Detai ls LastModified Time None Recorded Concern Status LastModified by Organization Details LastModified Time None Recorded Advance Directives Directive None Recorded Payers Insurance Date Sequence Insurance Name Policy Number Policy Melendez Covered Member ID Melendez Member ID Guarantor Name 05/28/2019 1 [facility] [id number] Navin Copeland Jarrod [id number] Navin Copeland Jarrod Notes Date Note Type Note Provider Name a nd Address Organization Details Recorded Time 8 text/html Routine exam Feels well, up to date with eye exams has been riding bicycle over summer , training to [place] [employer] 12/20/2017 No CP/SOB, no recent illnesses, checking BS's at home-was very high when on prednisone Viki Gruber NP, [address] [place], [address], [facility] 12/17/2017 10:51:42 9 text/html Routine appt Feels good Eating well, home BS's all over the place , rare hypoglycemia No medication changes, less physical activity last 3 months Had samples Viagra for ED, helped. ?'s refill, concerned re: cost Denies dysuria, hematuria, hesitancy Also started apple cider vinegar 3 X daily and notes overall feels better, ED slightly improved as well Viki Gruber NP, [address] [place], [address], [facility] 04/22/2018 09:38:45 9 text/html routine f/u Has been doing intermittent fasting from 7p-noon daily, cut way back on carbs. was able to stop all lantus Also using 10 mg simvastatin instead of 20 mg exercising cardio & weights PM bs usually 90, awakens around 130 Viki Gruber NP, [address] [place], [address], [facility] 07/10/2018 11:11:56 9 text/html 1. anemia - says taht he's been anemic all his life he thinks its due to iron but hes not sure. 2. dm - he says that generally his avg fbs is 122, but it'll be below 140 at bedtime and then jump up in the morning. his a1c is at goal. he is interested in continuous glucose monitoring. he thinks his insurance will cover it 3. cholesterol - wanted to see if he could stop the atorvastatin. reviewed that his LDL increased from 99-165. he was trying to maintain cholesterol with just diet 12 system ROS negative except where noted above- denies: chest pain, palpitations, sob, ankle swelling, visual problems, hearing problems, muscle aches or pains, numbness or tingling extremities, abdominal pain, bowel issues, bladder issues, sexual dysfunction, abnormal bleeding, sx of sinus/respiratory infection , headaches, dizziness/lightheaded ness, rashes, or nail changes. SHAYAN Ball [address] [place], [address], [facility] 11/18/2018 11:44:37 9 text/html Annual WellnessReported bypatient.Diet and Nutrition:healthy diet Fracture Risk:no history of fractures; no recent explained fracture; no sudden unexplained fractures; no previous musculoskeletal injuries Physical Activity:exercises on a regular basis Additional Lifestyle Factors:no tobacco use; drinks alcohol (mild-moderate) Depression Risk:never feels sad, empty, or tearful; no loss of interest in activities; no significant changes in weight; no sleep disturbances or insomnia; no agitation; no loss of energy; no feelings of worthlessness or guilt; no thoughts of suicide; no history of depression; no history of mood disorders Hearing:no loss of hearing Vision:no vision problems SHAYAN Ball [address] [place] [address], [address], [facility] 02/19/2019 10:07:19
== END 2024-10-07 09:23 | disposition home or self-care (01) ==
LOC: HO.HUSH 08:33
PROVIDERS: PCP Nurse Practitioner Family; Visit Provider Urology
DX: E11.69 Type 2 diabetes mellitus with other specified complication (principal); N52.1 Erectile dysfunction due to diseases classified elsewhere
CPT/HCPCS: 99213

== ENCOUNTER 2024-12-06 06:11 | Outpatient (REF) | payer BC, SELFPAY ==
--- OUTSIDE RECORDS SUMMARY | 2024-12-06 06:13 | XMS_ITS | Continuity of Care Document ---
Author Organization [facility] Address [address] [address] Insurance Providers Payer Plan Claims Address Claims Phone Policy Number Group Number Relation Employer Guarantor Name Guarantor Guarantor Address Guarantor Phone HMO Blue O [employer]UE [employer] PROF[employer]I ONAL CLAIMS, [address], [place] [address] tel:[phone] 33 Blue Cross Blue Plans Blue Cross Blue Plans [id number] BLUE CROSS HMO Blue Cross HMO [id number] Problems Condition ICD9 code ICD10 code SNOMED code Start Date End Date S tatus Encounter for screening for other metabolic disorders Z13.228 Results Test Result Date/Time Value / Unit Interp. Refere nce Range Comp. Metabolic Panel (14)[3 11951] Collected: 11/11/2024 03:47 PM Specimen Received: 11/11/2024 05:00 AM Source: [facility] Glucose [[id number]] 11/12/2024 04:15 AM 148 mg/dL H 70-99 mg/dL BUN [732471] 11/12/2024 04:15 AM 22 mg/dL 6-2 4 mg/dL Creatinine [101038] 11/12/2024 04:24 AM 1.15 mg/dL 0.76-1.27 mg/dL eGFR [372493] 11/12/2024 04:24 AM 75 mL/min/1.73 >59 mL/min/1.73 BUN/Creatinine Ratio [440192] 11/12/2024 04:24 AM 19 9-20 Sodium [750740] 11/12/2024 04:09 AM 142 mmol/L 134-144 mmol/L Potassium [927078] 11/12/2024 04:24 AM 5.5 mmol/L H 3.5-5.2 mmol/L Chloride [741500] 11/12/2024 04:06 AM 102 mmol/L 96-106 mmol/L Carbon Dioxide, Total [879560] 11/12/2024 04:14 AM 24 mmol/L 20-29 mmol/L Calcium [913606] 11/12/2024 04:07 AM 10.2 mg/dL 8.7-10.2 mg/dL Protein, Total [740285] 11/12/2024 04:21 AM 7.3 g/dL 6.0-8.5 g/dL Albumin [468382] 11/12/2024 04:16 AM 4.6 g/dL 3.8-4.9 g/dL Globulin, Total [692355] 11/12/2024 04:21 AM 2.7 g/dL 1.5-4.5 g/dL Bilirubin, Total [439975] 11/12/2024 04:25 AM 0.4 mg/dL 0.0-1.2 mg/dL Alkaline Phosphatase [955172] 11/12/2024 04:25 AM 45 IU/L 44-121 IU/L AST (SGOT) [138607] 11/12/2024 04:16 AM 23 IU/L 0-40 IU/L ALT (SGPT) [551589] 11/12/2024 04:16 AM 20 IU/L 0-44 IU/L Lipid Panel[378760] Collected: 11/11/2024 03:47 PM Specimen Received: 11/11/2024 05:00 AM Source: [facility] Cholesterol, Total [[id number]] 11/12/2024 04:25 AM 278 mg/dL H 100-199 mg/d L Triglycerides [036623] 11/12/2024 04:29 AM 106 mg/dL 0-149 mg/dL HDL Cholesterol [689455] 11/12/2024 04:25 AM 66 mg/dL >39 mg/dL VLDL Cholesterol Chris [399284] 11/12/2024 04:29 AM 18 mg/dL 5-40 mg/dL LDL Chol Calc ([facility]) [710346] 11/12/2024 04:29 AM 194 mg/dL H 0-99 mg/dL LDL Calc Comment: [157753] 11/12/2024 04:29 AM Consider evaluating for Fami lial Hypercholesterolemia(FH), ifclinically indicated. Albumin/Creatinine Ratio,Uri ne[376704] Collected: 11/11/2024 03:47 PM Specimen Received: 11/11/2024 05:00 AM Source: [facility] Creatinine, Urine [[id number]] 11/12/2024 11:07 PM 129.7 mg/dL Not Estab. m g/dL Albumin, Urine [[id number]] 11/12/2024 11:17 PM 3.0 ug/mL Not Estab. ug/mL Alb/Creat Ratio [709758] 11/12/2024 11:17 PM 2 mg/g creat 0-29 mg/g creat Normal: 0 - 29 Moderately in creased: 30 - 300 Severely increased: >300 Hemoglobin A1c[940355] Collected: 11/11/2024 03:47 PM Specimen Received: 11/11/2024 05:00 AM Source: [facility] Hemoglobin A1c [[id number]] 11/12/2024 03:05 AM 6.4 % H 4.8-5.6 % . Prediabetes: 5.7 - 6.4 Kina betes: >6.4 Glycemic control for adults with diabetes: 7.0 C-Peptide, Serum[[id number]] Collected: 06/14/2024 11:42 PM Specimen Received: 06/14/2024 05:00 AM Source: [facility] C-Peptide, Serum [[id number]] 06/15/2024 12:26 PM 1.2 ng/mL 1.1-4.4 ng/mL C-Peptide reference interval is for fasting patients. Glucose[174254] Collected: 06/14/2024 11:42 PM Specimen Received: 06/14/2024 05:00 AM Source: [facility] Glucose [[id number]] 06/15/2024 11:29 AM 133 mg/dL H 70-99 mg/dL Comp. Metabolic Panel (14)[3 18219] Collected: 05/31/2024 05:03 PM Specimen Received: 05/31/2024 05:00 AM Source: [facility] Glucose [[id number]] 06/01/2024 05:15 AM 104 mg/dL H 70-99 mg/dL BUN [[id number]] 06/01/2024 05:17 AM 18 mg/dL 6-2 4 mg/dL Creatinine [204730] 06/01/2024 05:22 AM 0.94 mg/dL 0.76-1.27 mg/dL eGFR [641106] 06/01/2024 05:22 AM 96 mL/min/1.73 >59 mL/min/1.73 BUN/Creatinine Ratio [971317] 06/01/2024 05:22 AM 19 9-20 Sodium [850674] 06/01/2024 05:14 AM 143 mmol/L 134-144 mmol/L Potassium [727425] 06/01/2024 05:15 AM 4.7 mmol/L 3.5-5.2 mmol/L Chloride [105315] 06/01/2024 05:14 AM 106 mmol/L 96-106 mmol/L Carbon Dioxide, Total [356253] 06/01/2024 05:21 AM 22 mmol/L 20-29 mmol/L Calcium [661283] 06/01/2024 05:15 AM 9.4 mg/dL 8.7-10.2 mg/dL Protein, Total [021044] 06/01/2024 05:17 AM 6.6 g/dL 6.0-8.5 g/dL Albumin [691762] 06/01/2024 05:15 AM 4.4 g/dL 3.8-4.9 g/dL Globulin, Total [350449] 06/01/2024 05:17 AM 2.2 g/dL 1.5-4.5 g/dL Bilirubin, Total [166726] 06/01/2024 05:15 AM 0.5 mg/dL 0.0-1.2 mg/dL Alkaline Phosphatase [975058] 06/01/2024 05:16 AM 52 IU/L 44-121 IU/L AST (SGOT) [977310] 06/01/2024 05:16 AM 24 IU/L 0-40 IU/L ALT (SGPT) [786428] 06/01/2024 05:17 AM 22 IU/L 0-44 IU/L Lipid Panel[243663] Collected: 05/31/2024 05:03 PM Specimen Received: 05/31/2024 05:00 AM Source: [facility] Cholesterol, Total [[id number]] 06/01/2024 05:25 AM 162 mg/dL 100-199 mg/d L Triglycerides [953927] 06/01/2024 05:25 AM 75 mg/dL 0-149 mg/dL HDL Cholesterol [318145] 06/01/2024 05:25 AM 52 mg/dL >39 mg/dL VLDL Cholesterol Chris [189736] 06/01/2024 05:25 AM 14 mg/dL 5-40 mg/dL LDL Chol Calc ([facility]) [506427] 06/01/2024 05:25 AM 96 mg/dL 0-99 mg/dL Albumin/Creatinine Ratio,Uri ne[904707] Collected: 05/31/2024 05:03 PM Specimen Received: 05/31/2024 05:00 AM Source: [facility] Creatinine, Urine [[id number]] 06/02/2024 12:14 AM 132.4 mg/dL Not Estab. m g/dL Albumin, Urine [[id number]] 06/02/2024 12:19 AM 3.0 ug/mL Not Estab. ug/mL Alb/Creat Ratio [229096] 06/02/2024 12:19 AM 2 mg/g creat 0-29 mg/g creat Normal: 0 - 29 Moderately in creased: 30 - 300 Severely increased: >300 Hemoglobin A1c[498759] Collected: 05/31/2024 05:03 PM Specimen Received: 05/31/2024 05:00 AM Source: [facility] Hemoglobin A1c [[id number]] 06/01/2024 03:25 AM 7.5 % H 4.8-5.6 % . Prediabetes: 5.7 - 6.4 Di abetes: >6.4 Glycemic control for adults with diabetes: 7.0 C-Peptide, Serum[[id number]] Collected: 05/31/2024 05:03 PM Specimen Received: 05/31/2024 05:00 AM Source: [facility] C-Peptide, Serum [[id number]] 06/01/2024 12:41 PM 0.5 ng/mL L 1.1-4.4 ng/mL C-Peptide reference interval is for fasting patients. Allergies, adverse reactions, alerts No known allergies and adverse reactions Medications No administered medications reported Vital Signs No vital signs reported Social History No smoking Hx information available
--- OUTSIDE RECORDS SUMMARY | 2024-12-06 06:13 | XMS_ITS | Patient Health Record ---
Author Organization [facility] Address [address] [place] [address] Care Team Providers Care Dredge Deckhand Name Role Phone ASHLIE BRUNO Primary Care Provider Kenneth Singh Jr Unavailable [phone] Allergies No Known Allergies Reason For Referral No Information Medications Medication SIG (Take, Route, Frequency, Duration) Notes Start Date End Date Status metFORMIN HCl ER 500 MG 1 tablet with ev ening meal Orally Once a day for 30 day(s) Active Multivitamin Adults - as directed Orally Active Atorvastatin Calcium 10 MG 1 tablet Oral ly Once a day for 30 day(s) Active Trulicity 0.75 MG/0.5ML as directed Subcutaneous Active MiraLax (colon prep) 17 GM/SCOOP mixed with Gatorade or Crystal Light Orally begin at 5:00 p.m. the day before the procedure for 1 day 03/12/2021 Active Immunizations Vaccine Route Administration Date Status Comme nts Influenza Unknown 02/13/2021 Administered Influenza Unknown 06/10/2019 Refused Social History Tobacco Use: Social History Observation Description Date Details (start date - stop date) Never Smoker NA - NA Tobacco Use/Smoking Question Answer Notes Patient is a nonsmoker Alcohol Screen Question Answer Notes Did you have a drink contain ing alcohol in the past year? Yes How often did you have a dri nk containing alcohol in the past year? Monthly or less (1 point) How many drinks did you have on a typical day when you were drinking in the past year? 1 or 2 drinks (0 point) How often did you have 6 or more drinks on one occasion in the past year? Never (0 point) Points 1 Interpretation Negative Problems Problem Type SNOMED Code ICD Code Onset Dates Problem Status W/U Status Risk Notes Problem 074931490 Colon cancer screening (Z12.11) Active confirmed Problem 325651017 Encounter for other preprocedural examination (Z01.818) Active confirmed Problem [id number] snf (current) use of oral hypoglycemic drugs (Z79.84) Active confirmed Plan Of Treatment Future Test Test Name Order Date COLONOSCOPY 06/10/2019 COLONOSCOPY 03/12/2021 Insurance Providers Payer Name Payer Address Payer Phone Subscriber Number Group Number Insured Name Patient Relationship to Insured Coverage Start Date Coverage End Date [facility] PROFESSIONAL CLAIMS [address] [place] [address] [id number] VINNIE BOATENG Self - patient is the insured Medical (General) History Medical History History ICD Code diabetes mellitus elevated Cholesterol Surgical History Surgery Date(Month/Year)
--- OUTSIDE RECORDS SUMMARY | 2024-12-06 06:13 | XMS_ITS | Continuity of Care Document ---
Author Organization [facility] Address [address] [address] Insurance Providers Payer Plan Claims Address Claims Phone Policy Number Group Number Relation Employer Guarantor Name Guarantor Guarantor Address Guarantor Phone HMO Blue O BLUE [employer] PROF[employer] ONAL CLAIMS, [address], [place] [address] tel:[phone] [id number] 33 Blue Cross Blue Plans Blue Cross Blue Plans [id number] BLUE CROSS HMO Blue Cross HMO [id number] Problems Condition ICD9 code ICD10 code SNOMED code Start Date End Date S tatus Encounter for screening for other metabolic disorders Z13.228 Results Test Result Date/Time Value / Unit Interp. Refere nce Range Comp. Metabolic Panel (14)[3 19625] Collected: 11/11/2024 03:47 PM Specimen Received: 11/11/2024 05:00 AM Source: [facility] Glucose [[id number]] 11/12/2024 04:15 AM 148 mg/dL H 70-99 mg/dL BUN [784488] 11/12/2024 04:15 AM 22 mg/dL 6-2 4 mg/dL Creatinine [885743] 11/12/2024 04:24 AM 1.15 mg/dL 0.76-1.27 mg/dL eGFR [201644] 11/12/2024 04:24 AM 75 mL/min/1.73 >59 mL/min/1.73 BUN/Creatinine Ratio [211582] 11/12/2024 04:24 AM 19 9-20 Sodium [084245] 11/12/2024 04:09 AM 142 mmol/L 134-144 mmol/L Potassium [984760] 11/12/2024 04:24 AM 5.5 mmol/L H 3.5-5.2 mmol/L Chloride [108896] 11/12/2024 04:06 AM 102 mmol/L 96-106 mmol/L Carbon Dioxide, Total [286178] 11/12/2024 04:14 AM 24 mmol/L 20-29 mmol/L Calcium [132347] 11/12/2024 04:07 AM 10.2 mg/dL 8.7-10.2 mg/dL Protein, Total [749116] 11/12/2024 04:21 AM 7.3 g/dL 6.0-8.5 g/dL Albumin [442527] 11/12/2024 04:16 AM 4.6 g/dL 3.8-4.9 g/dL Globulin, Total [159117] 11/12/2024 04:21 AM 2.7 g/dL 1.5-4.5 g/dL Bilirubin, Total [494709] 11/12/2024 04:25 AM 0.4 mg/dL 0.0-1.2 mg/dL Alkaline Phosphatase [364169] 11/12/2024 04:25 AM 45 IU/L 44-121 IU/L AST (SGOT) [028738] 11/12/2024 04:16 AM 23 IU/L 0-40 IU/L ALT (SGPT) [528317] 11/12/2024 04:16 AM 20 IU/L 0-44 IU/L Lipid Panel[[id number]] Collected: 11/11/2024 03:47 PM Specimen Received: 11/11/2024 05:00 AM Source: [facility] Cholesterol, Total [340356] 11/12/2024 04:25 AM 278 mg/dL H 100-199 mg/d L Triglycerides [385292] 11/12/2024 04:29 AM 106 mg/dL 0-149 mg/dL HDL Cholesterol [[id number]] 11/12/2024 04:25 AM 66 mg/dL >39 mg/dL VLDL Cholesterol Chris [020761] 11/12/2024 04:29 AM 18 mg/dL 5-40 mg/dL LDL Chol Calc ([facility]) [820424] 11/12/2024 04:29 AM 194 mg/dL H 0-99 mg/dL LDL Calc Comment: [579083] 11/12/2024 04:29 AM Consider evaluating for Fami lial Hypercholesterolemia(FH), ifclinically indicated. Albumin/Creatinine Ratio,Uri ne[362072] Collected: 11/11/2024 03:47 PM Specimen Received: 11/11/2024 05:00 AM Source: [facility] Creatinine, Urine [[id number]] 11/12/2024 11:07 PM 129.7 mg/dL Not Estab. m g/dL Albumin, Urine [074910] 11/12/2024 11:17 PM 3.0 ug/mL Not Estab. ug/mL Alb/Creat Ratio [426836] 11/12/2024 11:17 PM 2 mg/g creat 0-29 mg/g creat Normal: 0 - 29 Moderately in creased: 30 - 300 Severely increased: >300 Hemoglobin A1c[115189] Collected: 11/11/2024 03:47 PM Specimen Received: 11/11/2024 05:00 AM Source: [facility] Hemoglobin A1c [987152] 11/12/2024 03:05 AM 6.4 % H 4.8-5.6 % . Prediabetes: 5.7 - 6.4 Kina betes: >6.4 Glycemic control for adults with diabetes: 7.0 C-Peptide, Serum[838188] Collected: 06/14/2024 11:42 PM Specimen Received: 06/14/2024 05:00 AM Source: [facility] C-Peptide, Serum [[id number]] 06/15/2024 12:26 PM 1.2 ng/mL 1.1-4.4 ng/mL C-Peptide reference interval is for fasting patients. Glucose[211494] Collected: 06/14/2024 11:42 PM Specimen Received: 06/14/2024 05:00 AM Source: [facility] Glucose [[id number]] 06/15/2024 11:29 AM 133 mg/dL H 70-99 mg/dL Comp. Metabolic Panel (14)[3 40816] Collected: 05/31/2024 05:03 PM Specimen Received: 05/31/2024 05:00 AM Source: [facility] Glucose [[id number]] 06/01/2024 05:15 AM 104 mg/dL H 70-99 mg/dL BUN [965673] 06/01/2024 05:17 AM 18 mg/dL 6-2 4 mg/dL Creatinine [[id number]] 06/01/2024 05:22 AM 0.94 mg/dL 0.76-1.27 mg/dL eGFR [318760] 06/01/2024 05:22 AM 96 mL/min/1.73 >59 mL/min/1.73 BUN/Creatinine Ratio [697829] 06/01/2024 05:22 AM 19 9-20 Sodium [278413] 06/01/2024 05:14 AM 143 mmol/L 134-144 mmol/L Potassium [744742] 06/01/2024 05:15 AM 4.7 mmol/L 3.5-5.2 mmol/L Chloride [745235] 06/01/2024 05:14 AM 106 mmol/L 96-106 mmol/L Carbon Dioxide, Total [409281] 06/01/2024 05:21 AM 22 mmol/L 20-29 mmol/L Calcium [851794] 06/01/2024 05:15 AM 9.4 mg/dL 8.7-10.2 mg/dL Protein, Total [189624] 06/01/2024 05:17 AM 6.6 g/dL 6.0-8.5 g/dL Albumin [762658] 06/01/2024 05:15 AM 4.4 g/dL 3.8-4.9 g/dL Globulin, Total [979951] 06/01/2024 05:17 AM 2.2 g/dL 1.5-4.5 g/dL Bilirubin, Total [942767] 06/01/2024 05:15 AM 0.5 mg/dL 0.0-1.2 mg/dL Alkaline Phosphatase [851059] 06/01/2024 05:16 AM 52 IU/L 44-121 IU/L AST (SGOT) [041917] 06/01/2024 05:16 AM 24 IU/L 0-40 IU/L ALT (SGPT) [367565] 06/01/2024 05:17 AM 22 IU/L 0-44 IU/L Lipid Panel[110190] Collected: 05/31/2024 05:03 PM Specimen Received: 05/31/2024 05:00 AM Source: [facility] Cholesterol, Total [[id number]] 06/01/2024 05:25 AM 162 mg/dL 100-199 mg/d L Triglycerides [204575] 06/01/2024 05:25 AM 75 mg/dL 0-149 mg/dL HDL Cholesterol [680875] 06/01/2024 05:25 AM 52 mg/dL >39 mg/dL VLDL Cholesterol Chris [905907] 06/01/2024 05:25 AM 14 mg/dL 5-40 mg/dL LDL Chol Calc ([facility]) [935767] 06/01/2024 05:25 AM 96 mg/dL 0-99 mg/dL Albumin/Creatinine Ratio,Uri ne[793304] Collected: 05/31/2024 05:03 PM Specimen Received: 05/31/2024 05:00 AM Source: [facility] Creatinine, Urine [[id number]] 06/02/2024 12:14 AM 132.4 mg/dL Not Estab. m g/dL Albumin, Urine [[id number]] 06/02/2024 12:19 AM 3.0 ug/mL Not Estab. ug/mL Alb/Creat Ratio [[id number]] 06/02/2024 12:19 AM 2 mg/g creat 0-29 mg/g creat Normal: 0 - 29 Moderately in creased: 30 - 300 Severely increased: >300 Hemoglobin A1c[017896] Collected: 05/31/2024 05:03 PM Specimen Received: 05/31/2024 05:00 AM Source: [facility] Hemoglobin A1c [[id number]] 06/01/2024 03:25 AM 7.5 % H 4.8-5.6 % . Prediabetes: 5.7 - 6.4 Di abetes: >6.4 Glycemic control for adults with diabetes: 7.0 C-Peptide, Serum[988693] Collected: 05/31/2024 05:03 PM Specimen Received: 05/31/2024 05:00 AM Source: [facility] C-Peptide, Serum [[id number]] 06/01/2024 12:41 PM 0.5 ng/mL L 1.1-4.4 ng/mL C-Peptide reference interval is for fasting patients. Allergies, adverse reactions, alerts No known allergies and adverse reactions Medications No administered medications reported Vital Signs No vital signs reported Social History No smoking Hx information available
[2024-12-06 10:17] LABS: MANUAL DIFF FLAG NO
[2024-12-06 10:34] LABS: Hematocrit 36.6 % (42.0-52.0); Hemoglobin 11.9 g/dl (14.0-18.0); Imm Gran Abs Auto 0.01 X10*3/uL (0.00-0.03); Imm Gran Pct Auto 0.2 % (0.0-0.4); Lymphocytes Absolute Auto 1.6 X10*3/uL (1.2-4.9); Mean Corpuscular HGB Conc 32.5 g/dl (31.0-36.0); Mean Corpuscular Hemoglobin 30.5 pg (27.0-33.0); Mean Corpuscular Volume 93.8 fL (80.0-98.0); NRBC Abs Auto 0.000 X10*3/uL (0.0-0.012); NRBC Pct Auto 0.0 /100WBC (0.0-0.2); Platelet Count 215 X10*3/uL (160-400); Red Blood Count 3.90 X10*6/uL (4.60-5.80); White Blood Count 5.1 X10*3/uL (4.8-10.8)
[2024-12-06 10:53] LABS: Hemoglobin A1C 145.3335 umol/L; Total Hemoglobin (HGBA1C) 3155.8846 umol/L
[2024-12-06 10:55] LABS: Iron 87 mcg/dL (45-160); Percent Iron Saturation 32 % (15-50); Total Iron Binding Capacity 272 mcg/dL (228-428); Unsaturated Iron Binding 185 ug/dL
[2024-12-06 11:20] LABS: Ferritin 93 ng/mL (20-250)
[2024-12-06 11:22] LABS: Folate 11.1 ng/mL (> or = 4.0); Vitamin B12 430 pg/mL (200-900)
[2024-12-07 14:13] LABS: Hematocrit 37.0 % (38.5-50.0); Hemoglobin 12.2 g/dL (13.2-17.1); MCH 31.4 pg (27.0-33.0); MCV 95.1 fL (80.0-100.0); RBC 3.89 Million/uL (4.20-5.80); RDW 12.3 % (11.0-15.0)
== END 2024-12-06 06:12 | disposition home or self-care (01) ==
LOC: HO.HMGCLDS 06:11
PROVIDERS: PCP Nurse Practitioner Family; Visit Provider Nurse Practitioner Family
DX: Z00.00 Encounter for general adult medical examination without abnormal findings (principal); E11.9 Type 2 diabetes mellitus without complications; D64.9 Anemia, unspecified
CPT/HCPCS: 36415; 82043; 82570; 82607; 82728; 82746; 83020; 83036; 83540; 85014; 85018; 85025; 85041

== ENCOUNTER 2024-12-10 06:10 | Outpatient (REF) | payer BC, SELFPAY ==
--- OUTSIDE RECORDS SUMMARY | 2024-12-10 00:59 | XMS_ITS | Continuity of Care Document ---
Author Name [facility] Organization [facility] Care Team Providers Care Online Services Manager Name Role Phone [facility] Unavailable Unavailable Allergies, Adverse Reactions, Alerts Combined list of allergies from Department of Defense and Veterans Affairs facilities. It does not include entries that were removed or entered in error. Substance Category Reaction Severity Reaction type Status Date Reported Comments Source No Known Allergies Drug allergy (disorder) active 09/25/2011 [facility], [place] Social History Combined list of available smoking, tobacco, and other social history from Department of Defense and Veterans Affairs facilities. Social History Type Response Date Comment Sour e This section is an empty social history section. DoD
--- OUTSIDE RECORDS SUMMARY | 2024-12-10 06:12 | XMS_ITS | Patient Health Record ---
Author Organization [facility] Address [address] [place] [address] Care Team Providers Care Pipe Coverer And Insulator Name Role Phone ASHLIE BRUNO Primary Care Provider Kenneth Singh Jr Unavailable [phone] Allergies No Known Allergies Reason For Referral [...] Problem Status W/U Status Risk Notes Problem 116967799 Colon cancer screening (Z12.11) Active confirmed Problem 307749032 Encounter for other preprocedural examination (Z01.818) Active confirmed Problem [id number] [facility] (current) use of oral hypoglycemic drugs (Z79.84) Active confirmed Plan Of Treatment Future Test Test Name Order Date COLONOSCOPY 06/10/2019 COLONOSCOPY 03/12/2021 Insurance Providers Payer Name Payer Address Payer Phone Subscriber Number Group Number Insured Name Patient Relationship to Insured Coverage Start Date Coverage End Date [facility] PROFESSIONAL CLAIMS [address] [place] [address] [id number] VINNIE BOATENG Self - patient is the insured Medical (General) History Medical History History ICD Code diabetes mellitus elevated Cholesterol Surgical History Surgery Date(Month/Year)
[2024-12-10 10:22] LABS: Reticulocytes Absolute 0.036 X10*6/uL (0.026-0.095)
== END 2024-12-10 06:11 | disposition home or self-care (01) ==
LOC: HO.HMGCLDS 06:10
PROVIDERS: PCP Nurse Practitioner Family; Visit Provider Nurse Practitioner Family
DX: D64.9 Anemia, unspecified (principal)
CPT/HCPCS: 36415; 83615; 85045

== ENCOUNTER 2024-12-14 09:54 | Outpatient (AMB) | payer BC, SELFPAY ==
--- NOTE | 2024-12-14 09:56 | MHC.PC.OV ---
Vital Signs 12/14/24 09:57 Weight 160 lb BP 120/68 Blood Pressure Location Lt brachial Position Sitting Respiration 16 Pulse 49 L Pulse Source Pulse Oximeter Pulse Oximetry (%) 99 Oxygen Delivery Method Room Air Intake Visit Reasons: Annual PE Mobile Home Servicer Required: No Accompanied by: Self / Same As Patient Allergies No Known Allergies Allergy (Verified 12/14/24 09:56) Medication List - Last Reconciled 12/14/24 by JANES Carlson atorvastatin 80 mg (2 x 40 mg) PO QPM blood sugar diagnostic As directed blood-glucose sensor (Dexcom G6 Sensor device) As directed blood-glucose transmitter (Dexcom G6 Transmitter device) As directed blood-glucose,supervisor telephone answering service,cont (Dexcom G6 Planer Setup Operator) As directed blood-glucose,supervisor telephone answering service,cont (Dexcom G6 Planer Setup Operator) As directed glucagon 3 mg/actuation (Baqsimi) 3 mg intranasal ONCE insulin glargine (Lantus Solostar U-100 Insulin) 15 units (0.15 mL) subcut QAM metformin ER 1,000 mg (2 x 500 mg) PO QPM 90 days pen needle, diabetic (BD Jojo 2nd Gen Pen Needle) USE DIRECTED sildenafil 100 mg PO ONCE PRN 30 days tadalafil 5 mg PO DAILY 90 days tirzepatide (Mounjaro) 2.5 mg (0.5 mL) subcut QWEEK 30 days Tobacco use date assessed: 12/14/24 Dental Screening Dental Screen Date: 12/14/24 Did you have a dental visit in the last 12 months?: Yes Did you have a dental problem in the last 6 months where you did not have access to dental care?: No Was dental information given to patient?: Patient has dentist HPI Annual PE HPI Details History of Present Illness The patient is a 54-year-old male presenting for a physical examination. He has a history of anemia, with previous workups returning negative results, and the condition is currently being monitored. The patient also has a left inguinal hernia, which is small and non-tender, and he has opted not to pursue treatment at this time. He is a diabetic but denies any neuropathy, and his feet have intact sensation as confirmed by a monofilament test. 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 diabetes: stable A1c, denies any neuropathy, fairly well controlled, knows the s/s of hypoglycemia and how to correct it. Health Maintenance - Colon cancer screening is up to date - Eye examination is up to date Social History - Exercise: Triathlon competitor and bicyclist Review of Systems - Cardiovascular: Denies chest pain - Respiratory: Denies dyspnea - Gastrointestinal: Denies abdominal pain, blood in stool, constipation, diarrhea - Neurological: Denies fatigue - Psychiatric: Denies suicidal ideation, homicidal ideation Physical Exam General: Cooperative, healthy appearing, comfortable, no acute distress and well developed Orientation: Patient oriented x3 Limitations: No limitations Head: Normal to inspection Ears: Hearing grossly normal bilaterally Nose: Normal external nose present Face and sinus: Normal facial exam Eyes: Appearance normal, both eyes and all related structures Neck: Normal visual inspection and Yes full ROM Respiratory: Normal respiratory effort and able to speak in complete sentences. Clear to auscultation bilaterally Cardiovascular: Bradycardic, Normal S1 and S2 GI: Normal to inspection. Soft to palpation and nontender : Left inguinal hernia present, testicles without masses/lesions and no other hernias appreciated Skin: No rashes or lesions noted Neuro: Patient oriented x3, positive sensation with use of monofilament to feet Extremities: Normal to inspection, feet intact 1. Anemia The patient has a history of anemia with previous workups returning negative results. The condition is currently being monitored without any active intervention required at this time. 2. Left Inguinal Hernia The patient has a small, non-tender left inguinal hernia. He has chosen not to pursue surgical intervention at this time as it is not causing significant discomfort. 3. Diabetes Mellitus The patient is managing diabetes mellitus without any reported neuropathy. Sensation in the feet is intact as confirmed by monofilament testing, indicating no current complications from diabetes. Discussion Notes will cont to monitor anemia, completely asymptomatic diabetes controlled, 6.4 a1c [facility] Medical History Dyslipidemia Diabetes Surgical History No pertinent past surgical history Family History Father No problems noted. Mother Dementia Sister No problems noted. Social History Housing: House Alcohol intake: current Patient Tobacco Use Status: Never used Tobacco e-Cigarette/Vaping Use: Never Used Second Hand Smoke Exposure: No service: Yes Current occupational status: employed Current occupation: [employer] Current occupational exposures/hazards: Yes Cognitive needs: No Hearing needs: No Vision needs: Yes Questionnaire PHQ-9 Over the last 2 weeks, how often have you been bothered by any of the following problems? 1. Little interest or pleasure in doing things: not at all 2. Feeling down, depressed, or hopeless: not at all 3. Trouble falling or staying asleep, or sleeping too much: not at all 4. Feeling tired or having little energy: several days 5. Poor appetite or overeating: not at all 6. Feeling bad about yourself - or that you are a failure or have let yourself or your family down: not at all 7. Trouble concentrating on things, such as reading the newspaper or watching television: not at all 8. Moving or speaking so slowly that other people could have noticed. Or the opposite - being so fidgety or restless that you have been moving around a lot more than usual: not at all 9. Thoughts that you would be better off or of hurting yourself in some way: not at all Total score: 1 Depression Screening Interpretation: Negative Depression Screening Done: Yes 54334 - PHQ-9 Billing: Patient declined-do not bill Source: Developed by Drs. Huey Nava, Vivian Kwan, Larry Machado and colleagues, with an educational alisia from [employer]. Thrive Questionnaire Date Thrive assessed: 12/08/23 I am a: Patient What is your living situation today?: I have a steady place to live Within the past 12 months, did the food you bought not last and you didn't have the money to get more?: Never true Within the past 12 months, did you worry whether your food would run out before you got money to buy more?: Never true Do you have trouble paying for medicines?: No Do you have trouble getting transportation to medical appointments?: No Do you have trouble paying your heating and electricity bill?: No Do you have trouble taking care of your child, family member or friend?: No Do you have trouble with day-to-day activities such as bathing, preparing meals, shopping, managing finances, etc.?: No Are you currently unemployed and looking for a job?: No Are you interested in more education?: No Please select the resources that you would like help with: None Currently or been in a relationship where the following occur: No concerns reported THRIVE Score: 0 AUDIT C Alcohol Use Questionnaire (AUDIT-C) 1. How often do you have a drink containing alcohol?: 2-4 times a month 2. How many drinks containing alcohol do you have on a typical day when you are drinking?: 1 or 2 3. How often do you have six or more drinks on one occasion?: Never Total Score: 2 Score Reviewed/Action Taken: Yes CHEMO-7 AMB Questionnaire CHEMO-7 Date CHEMO - 7 assessed: 12/08/23 Feeling nervous, anxious, or on edge: 0 = Not at all Not being able to stop or control worryin = Not at all Worrying too much about different things: 0 = Not at all Trouble relaxin = Not at all Being so restless that it is hard to sit still: 0 = Not at all Becoming easily annoyed or irritable: 0 = Not at all Feeling afraid as if something awful might happen: 0 = Not at all Total CHEMO-7 score (0-4 normal; 5-9 mild; 10-14 moderate; 15-21 severe): 0 Source: Developed by Drs. Huey Nava, Vivian Kwan, Lrary Machado and colleagues, with an educational alisia from [employer]. CHEMO-7 Assessment Billing CHEMO-7 Assessment Tool: CHEMO-7 Assessment 82012 Physical exam (Primary Care) Vital Signs: Last Vital Signs Pulse 49 L 12/14/24 09:57 Resp 16 12/14/24 09:57 BP 120/68 12/14/24 09:57 Pulse Ox 99 12/14/24 09:57 Oxygen Delivery Method Room Air 12/14/24 09:57 Tobacco/Smoking Status: Tobacco use Status Tobacco use date assessed 12/14/24 12/14/24 10:00 Patient Tobacco Use Status Never used Tobacco 12/14/24 10:00 e-Cigarette/Vaping Use Never Used 12/14/24 10:00 PHQ-9: PHQ-9 Score PHQ-9: Total score 1 12/14/24 10:00 Depression Screening Interpretation: Negative Thrive Assessment: Date of Thrive Assessment Date Thrive assessed 12/08/23 12/14/24 10:00 Currently or been in a relationship where the following occur: No concerns reported Coding Level of Care Code Est Pt Level 3 (85680) Est Pt Prev Care 40-64y(77939) Diagnoses Anemia D64.9 Physical exam Z00.00 Controlled type 2 diabetes mellitus with insulin therapy E11.9; Z79.4 Screening PSA (prostate specific antigen) Z12.5 Additional Codes CHEMO-7 Assessment Billing - CHEMO-7 Assessment Tool: CHEMO-7 Assessment 03809 ([id number]) Assessment & Plan Assessment & Plan (1) Anemia: Code(s): D64.9 - Anemia, unspecified Category: Medical (2) Physical exam: Code(s): Z00.00 - Encounter for general adult medical examination without abnormal findings Category: Medical (3) Controlled type 2 diabetes mellitus with insulin therapy: Code(s): E11.9 - Type 2 diabetes mellitus without complications; Z79.4 - firer boiler (current) use of insulin Category: Medical (4) Screening PSA (prostate specific antigen): Code(s): Z12.5 - Encounter for screening for malignant neoplasm of prostate Category: Medical Plan . Orders: Orders Complete Blood Count Auto Diff Today D64.9 - Anemia, unspecified, E11.9 - Type 2 diabetes mellitus without complications, Z00.00 - Encounter for general adult medical examination without abnormal findings, Z79.4 - long-term (current) use of insulin Ferritin Today D64.9 - Anemia, unspecified, E11.9 - Type 2 diabetes mellitus without complications, Z00.00 - Encounter for general adult medical examination without abnormal findings, Z79.4 - long-term (current) use of insulin Lipid Panel Today E11.9 - Type 2 diabetes mellitus without complications, Z79.4 - firer boiler (current) use of insulin Prostate Specific Antigen Scr Today Z12.5 - Encounter for screening for malignant neoplasm of prostate Comprehensive Met. Panel Today D64.9 - Anemia, unspecified, E11.9 - Type 2 diabetes mellitus without complications, Z00.00 - Encounter for general adult medical examination without abnormal findings, Z79.4 - firer boiler (current) use of insulin TSH reflex Free T4 Today D64.9 - Anemia, unspecified, E11.9 - Type 2 diabetes mellitus without complications, Z00.00 - Encounter for general adult medical examination without abnormal findings, Z79.4 - firer boiler (current) use of insulin Lactate Dehydrogenase Today D64.9 - Anemia, unspecified, E11.9 - Type 2 diabetes mellitus without complications, Z00.00 - Encounter for general adult medical examination without abnormal findings, Z79.4 - long-term (current) use of insulin Vitamin B12 and Folate Today D64.9 - Anemia, unspecified, E11.9 - Type 2 diabetes mellitus without complications, Z00.00 - Encounter for general adult medical examination without abnormal findings, Z79.4 - long-term (current) use of insulin MARY Reflex Titer and Pattern Today D64.9 - Anemia, unspecified, E11.9 - Type 2 diabetes mellitus without complications, Z00.00 - Encounter for general adult medical examination without abnormal findings, Z79.4 - long-term (current) use of insulin Reticulocyte Count Today D64.9 - Anemia, unspecified, E11.9 - Type 2 diabetes mellitus without complications, Z00.00 - Encounter for general adult medical examination without abnormal findings, Z79.4 - long-term (current) use of insulin
[2024-12-14 09:57] VITALS: BP 120/68; PULSE 49; RESP 16; O2SAT 99
--- OUTSIDE RECORDS SUMMARY | 2024-12-14 11:09 | XMS_ITS | Continuity of Care Document ---
Author Name [facility] Organization [facility] Care Team Providers Care Perioperative Assistant Name Role Phone [facility] Unavailable Unavailable Allergies, Adverse Reactions, Alerts Combined list of allergies from Department of Defense and Veterans Affairs facilities. It does not include entries that were removed or entered in error. Substance Category Reaction Severity Reaction type Status Date Reported Comments Source No Known Allergies Drug allergy (disorder) active 09/25/2011 [facility] Social History Combined list of available smoking, tobacco, and other social history from Department of Defense and Veterans Affairs facilities. Social History Type Response Date Comment Sour e This section is an empty social history section. DoD
--- OUTSIDE RECORDS SUMMARY | 2024-12-14 11:11 | XMS_ITS | Patient Health Record ---
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
== END 2024-12-14 10:17 | disposition home or self-care (01) ==
LOC: HO.HMCC 09:54
PROVIDERS: PCP Nurse Practitioner Family; Visit Provider Nurse Practitioner Family
DX: Z00.00 Encounter for general adult medical examination without abnormal findings (principal); D64.9 Anemia, unspecified; E11.9 Type 2 diabetes mellitus without complications; Z79.4 Long term (current) use of insulin; Z12.5 Encounter for screening for malignant neoplasm of prostate

== ENCOUNTER → 2024-12-14 09:54 | Outpatient (BNVA) | payer BC, SELFPAY | PROVIDERS: PCP Nurse Practitioner Family; Visit Provider Nurse Practitioner Family | DX: Z00.00 Encounter for general adult medical examination without abnormal findings (principal); K40.90 Unilateral inguinal hernia, without obstruction or gangrene, not specified as recurrent; E11.9 Type 2 diabetes mellitus without complications; D64.9 Anemia, unspecified; Z79.4 Long term (current) use of insulin | CPT/HCPCS: 96127 ==

== ENCOUNTER 2025-03-17 07:10 | Outpatient (REF) | payer BC, SELFPAY ==
--- OUTSIDE RECORDS SUMMARY | 2025-03-17 07:15 | XMS_ITS | Continuity of Care Document ---
Author Organization [facility] Address [address] [address] Insurance Providers Payer Plan Claims Address Claims Phone Policy Number Group Number Relation Employer Guarantor Name Guarantor Guarantor Address Guarantor Phone HMO Blue O [employer]UE [employer] CLAIM[employer], [address], [place] [address] tel:[phone] [id number] Blue Cross Blue Plans Blue Cross Blue Plans [id number] BLUE CROSS HMO Blue Cross HMO [id number] Problems Condition ICD9 code ICD10 code SNOMED code Start Date End Date S tatus Encounter for screening for other metabolic disorders Z13.228 Results Test Result Date/Time Value / Unit Interp. Refere nce Range Comp. Metabolic Panel (14)[3 [id number]] Collected: 11/11/2024 03:47 PM Specimen Received: 11/11/2024 05:00 AM Source: [facility] Glucose [[id number]] 11/12/2024 04:15 AM 148 mg/dL H 70-99 mg/dL BUN [835882] 11/12/2024 04:15 AM 22 mg/dL 6-2 4 mg/dL Creatinine [752832] 11/12/2024 04:24 AM 1.15 mg/dL 0.76-1.27 mg/dL eGFR [684731] 11/12/2024 04:24 AM 75 mL/min/1.73 >59 mL/min/1.73 BUN/Creatinine Ratio [947954] 11/12/2024 04:24 AM 19 9-20 Sodium [349232] 11/12/2024 04:09 AM 142 mmol/L 134-144 mmol/L Potassium [978551] 11/12/2024 04:24 AM 5.5 mmol/L H 3.5-5.2 mmol/L Chloride [576934] 11/12/2024 04:06 AM 102 mmol/L 96-106 mmol/L Carbon Dioxide, Total [237305] 11/12/2024 04:14 AM 24 mmol/L 20-29 mmol/L Calcium [762297] 11/12/2024 04:07 AM 10.2 mg/dL 8.7-10.2 mg/dL Protein, Total [175230] 11/12/2024 04:21 AM 7.3 g/dL 6.0-8.5 g/dL Albumin [661113] 11/12/2024 04:16 AM 4.6 g/dL 3.8-4.9 g/dL Globulin, Total [121606] 11/12/2024 04:21 AM 2.7 g/dL 1.5-4.5 g/dL Bilirubin, Total [432639] 11/12/2024 04:25 AM 0.4 mg/dL 0.0-1.2 mg/dL Alkaline Phosphatase [064436] 11/12/2024 04:25 AM 45 IU/L 44-121 IU/L AST (SGOT) [164033] 11/12/2024 04:16 AM 23 IU/L 0-40 IU/L ALT (SGPT) [573457] 11/12/2024 04:16 AM 20 IU/L 0-44 IU/L Lipid Panel[892588] Collected: 11/11/2024 03:47 PM Specimen Received: 11/11/2024 05:00 AM Source: [facility] Cholesterol, Total [074548] 11/12/2024 04:25 AM 278 mg/dL H 100-199 mg/d L Triglycerides [428827] 11/12/2024 04:29 AM 106 mg/dL 0-149 mg/dL HDL Cholesterol [042078] 11/12/2024 04:25 AM 66 mg/dL >39 mg/dL VLDL Cholesterol Chris [502791] 11/12/2024 04:29 AM 18 mg/dL 5-40 mg/dL LDL Chol Calc ([facility]) [899086] 11/12/2024 04:29 AM 194 mg/dL H 0-99 mg/dL LDL Calc Comment: [826780] 11/12/2024 04:29 AM Consider evaluating for Fami lial Hypercholesterolemia(FH), ifclinically indicated. Albumin/Creatinine Ratio,Uri ne[448667] Collected: 11/11/2024 03:47 PM Specimen Received: 11/11/2024 05:00 AM Source: [facility] Creatinine, Urine [[id number]] 11/12/2024 11:07 PM 129.7 mg/dL Not Estab. m g/dL Albumin, Urine [094476] 11/12/2024 11:17 PM 3.0 ug/mL Not Estab. ug/mL Alb/Creat Ratio [296519] 11/12/2024 11:17 PM 2 mg/g creat 0-29 mg/g creat Normal: 0 - 29 Moderately in creased: 30 - 300 Severely increased: >300 Hemoglobin A1c[[id number]] Collected: 11/11/2024 03:47 PM Specimen Received: 11/11/2024 05:00 AM Source: [facility] Hemoglobin A1c [435930] 11/12/2024 03:05 AM 6.4 % H 4.8-5.6 % . Prediabetes: 5.7 - 6.4 Kina betes: >6.4 Glycemic control for adults with diabetes: 7.0 C-Peptide, Serum[[id number]] Collected: 06/14/2024 11:42 PM Specimen Received: 06/14/2024 05:00 AM Source: [facility] C-Peptide, Serum [[id number]] 06/15/2024 12:26 PM 1.2 ng/mL 1.1-4.4 ng/mL C-Peptide reference interval is for fasting patients. Glucose[[id number]] Collected: 06/14/2024 11:42 PM Specimen Received: 06/14/2024 05:00 AM Source: [facility] Glucose [[id number]] 06/15/2024 11:29 AM 133 mg/dL H 70-99 mg/dL Comp. Metabolic Panel (14)[3 [id number]] Collected: 05/31/2024 05:03 PM Specimen Received: 05/31/2024 05:00 AM Source: [facility] Glucose [[id number]] 06/01/2024 05:15 AM 104 mg/dL H 70-99 mg/dL BUN [501834] 06/01/2024 05:17 AM 18 mg/dL 6-2 4 mg/dL Creatinine [231085] 06/01/2024 05:22 AM 0.94 mg/dL 0.76-1.27 mg/dL eGFR [317301] 06/01/2024 05:22 AM 96 mL/min/1.73 >59 mL/min/1.73 BUN/Creatinine Ratio [812613] 06/01/2024 05:22 AM 19 9-20 Sodium [805242] 06/01/2024 05:14 AM 143 mmol/L 134-144 mmol/L Potassium [118162] 06/01/2024 05:15 AM 4.7 mmol/L 3.5-5.2 mmol/L Chloride [058082] 06/01/2024 05:14 AM 106 mmol/L 96-106 mmol/L Carbon Dioxide, Total [818065] 06/01/2024 05:21 AM 22 mmol/L 20-29 mmol/L Calcium [544164] 06/01/2024 05:15 AM 9.4 mg/dL 8.7-10.2 mg/dL Protein, Total [992129] 06/01/2024 05:17 AM 6.6 g/dL 6.0-8.5 g/dL Albumin [098138] 06/01/2024 05:15 AM 4.4 g/dL 3.8-4.9 g/dL Globulin, Total [974918] 06/01/2024 05:17 AM 2.2 g/dL 1.5-4.5 g/dL Bilirubin, Total [752482] 06/01/2024 05:15 AM 0.5 mg/dL 0.0-1.2 mg/dL Alkaline Phosphatase [240426] 06/01/2024 05:16 AM 52 IU/L 44-121 IU/L AST (SGOT) [602433] 06/01/2024 05:16 AM 24 IU/L 0-40 IU/L ALT (SGPT) [559282] 06/01/2024 05:17 AM 22 IU/L 0-44 IU/L Lipid Panel[[id number]] Collected: 05/31/2024 05:03 PM Specimen Received: 05/31/2024 05:00 AM Source: [facility] Cholesterol, Total [[id number]] 06/01/2024 05:25 AM 162 mg/dL 100-199 mg/d L Triglycerides [896633] 06/01/2024 05:25 AM 75 mg/dL 0-149 mg/dL HDL Cholesterol [753110] 06/01/2024 05:25 AM 52 mg/dL >39 mg/dL VLDL Cholesterol Chris [995923] 06/01/2024 05:25 AM 14 mg/dL 5-40 mg/dL LDL Chol Calc ([facility]) [990603] 06/01/2024 05:25 AM 96 mg/dL 0-99 mg/dL Albumin/Creatinine Ratio,Uri ne[031073] Collected: 05/31/2024 05:03 PM Specimen Received: 05/31/2024 05:00 AM Source: [facility] Creatinine, Urine [[id number]] 06/02/2024 12:14 AM 132.4 mg/dL Not Estab. m g/dL Albumin, Urine [[id number]] 06/02/2024 12:19 AM 3.0 ug/mL Not Estab. ug/mL Alb/Creat Ratio [[id number]] 06/02/2024 12:19 AM 2 mg/g creat 0-29 mg/g creat Normal: 0 - 29 Moderately in creased: 30 - 300 Severely increased: >300 Hemoglobin A1c[[id number]] Collected: 05/31/2024 05:03 PM Specimen Received: 05/31/2024 05:00 AM Source: [facility] Hemoglobin A1c [[id number]] 06/01/2024 03:25 AM 7.5 % H 4.8-5.6 % . Prediabetes: 5.7 - 6.4 Di abetes: >6.4 Glycemic control for adults with diabetes: 7.0 C-Peptide, Serum[[id number]] Collected: 05/31/2024 05:03 PM Specimen Received: 05/31/2024 05:00 AM Source: [facility] C-Peptide, Serum [[id number]] 06/01/2024 12:41 PM 0.5 ng/mL L 1.1-4.4 ng/mL C-Peptide reference interval is for fasting patients. Allergies, adverse reactions, alerts No known allergies and adverse reactions Medications No administered medications reported Vital Signs No vital signs reported Social History No smoking Hx information available
--- OUTSIDE RECORDS SUMMARY | 2025-03-17 07:15 | XMS_ITS | Data Portability ---
Author Organization [facility], Telehealth Patient Home Address [address] [place] [address] Assessment No assessment recorded. Plan of Treatment Reminders Order Date Submit Date Provider Last Modified By Organization Details Last Modified Time Details Appointments None recorded. Lab microalbum in, urine 2018 [email or web address] Not available 9 08:53:32 lipid panel, blood 2018 [email or web address] Not available 9 08:53:32 CMP, serum or plasma 2018 019 [email or web address] Not available 9 08:53:32 urinalysis , dipstick 2018 [facility], [address] [place] [address], [facility] [address], [place], [address], 9 09:57:06 iron + TIBC + ferritin, serum 2018 Not available 9 09:57:07 vitamin B12, serum 2018 019 Not available 9 09:57:07 folate, serum 2018 Not available 9 09:57:07 CBC w/ diff 2018 Not available 9 09:57:07 PSA, serum or plasma 2018 019 ATHENAFAX [facility], [address] [facility], [address], [place], [address], 9 09:57:49 HbA1c (hemoglobi n A1c), blood [...] referral 2018 019 hred Lehman Jr, MD, [address] [place] [address] [place], [address], 9 08:29:00 gastroente rologist referral 2018 019 CHELSEAENASOPHIAX Kenneth Lehman Jr, MD, [address] [place], [address], 9 13:40:47 Procedures None recorded. Surgeries None recorded. Imaging None recorded. Medication Orders atorvastat in 20 mg tablet 2018 019 sol [id number], [address] [place], [address], 09:30:36 Patient TargetsNo targets recorded. Patient Instructions Encounter Date Encounter Id Patient Instructions Last Modified By Organization Details Last Modified Time 12/17/2017 [id number] Continue healthy exercise [email or web address] Not available 12/17/2017 10:49:47 07/10/2018 [id number] Continue healthy lifestyle changes [facility] Not available 07/10/2018 11:11:43 11/18/2018 [id number] learning about type 2 diabetes Not available 11/18/2018 11:34:34 type 2 diabetes: care instructions Not available 11/18/2018 11:34:34 anemia: care instructions Not available 11/18/2018 11:34:34 02/19/2019 [id number] learning about type 2 diabetes abcherrington Not available 02/19/2019 09:57:07 type 2 diabetes: care instructions abcherrington Not available 02/19/2019 09:57:07 anemia: care instructions abcherrington Not available 02/19/2019 09:57:07 Reason for Referral Colonoscopy Referral for Scr eening for malignant neoplasm of colon Referring Physician: Ivania [facility], Encounter Date: 02/19/2019 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 Referral for Screening for malignant neoplasm of colon Referring Physician: Ivania [facility], Encounter Date: 02/19/2019 Results Created Date Observation Date Name Description Value Unit Range Abnormal Flag Note LastModifiedBy Organization Detail LastModifiedTime 02/20/2002/19/2019 urina lysis , dipst ick Leukocytes Negati ve Not Available [facility] [address] [place] [address] [place], [address], 02/19/2019 09:30:57 02/20/2002/19/2019 urina lysis , dipst ick Nitrite negati ve Not Available [facility] [address] [place] [address] D, [place], [address], 02/19/2019 09:30:57 02/20/2002/19/2019 urina lysis , dipst ick Urobilinogen .2 Not Available [facility] [address] [facility] [address], [place], [address], 02/19/2019 09:30:57 02/20/2002/19/2019 urina lysis , dipst ick Protein Negati ve Not Available [facility] [address] [facility] [address], [place], [address], 02/19/2019 09:30:57 02/20/2002/19/2019 urina lysis , dipst ick pH 6.0 Not Available [facility] [address] [facility] [address], [place], [address], 02/19/2019 09:30:57 02/20/2002/19/2019 urina lysis , dipst ick Blood Negati ve Not Available [address], [place], [address], 02/19/2019 09:30:57 02/20/2002/19/2019 urina lysis , dipst ick Specific [place] 1.020 Not Available [facility] [address] [facility] [address], [place], [address], 02/19/2019 09:30:57 02/20/2002/19/2019 urina lysis , dipst ick Ketone Negati ve Not Available [facility] [address] [facility] [address], [place], [address], 02/19/2019 09:30:57 02/20/2002/19/2019 urina lysis , dipst ick Bilirubin Negati ve Not Available [facility] [address] [facility] [address], [place], [address], 02/19/2019 09:30:57 02/20/20 19 02/19/2019 urina lysis , dipst ick Glucose Negati ve Not Available [facility] [address] [facility] [address], [place], [address], 02/19/2019 09:30:57 02/20/20 19 02/19/2019 urina lysis , dipst ick Appearance Clear Not Available [address], [place], [address], 02/19/2019 09:30:57 02/20/20 19 02/19/2019 urina lysis , dipst ick Color Yellow Not Available [address], [place], [address], 02/19/2019 09:30:57 Result Notes None recorded. Problems Name Problem SNOMED Code Status Onset Date Resolution Date Notes Provider Name and Address Organization Details Recorded Time Diabetes mellitus 94820231 Active 2017 Renita castillo [facility] 8 10:36:19 Hyperchole sterolemia 94712356 Active 2017 Renita castillo [facility] 8 10:36:27 Type 2 diabetes mellitus 42521671 Active [address], [address], [facility] 9 11:35:05 Anemia 048531730 Active [address], [address], [facility] 9 11:35:16 Problem Notes None recorded. Medical [...] (BMI) Body weight Heart rate Oxygen saturation Systolic And Diastolic Provider Name and Address Organization Details Last Updated DateTime 9 180.98 cm 25.7 kg/m2 60045.4 6 g 67 /min 98 % 110/70 mm[Hg] Renita Daley [facility] 9 09:09:52 Date Recorded Body height Body mass index (BMI) Body weight Heart rate Oxygen saturation Systolic And Diastolic Provider Name and Address Organization Details Last Updated DateTime 9 180.98 cm 24.2 kg/m2 99174.3 1 g 62 /min 99 % 126/80 mm[Hg] Kortney Arevalo [facility] 9 10:54:54 Date Recorded Body mass index (BMI) Body weight Provider Name and Address Organization Details Last Updated DateTime 11/18/2018 23 kg/m2 62200.33 g July SHAYAN Denton [address] [place] [address], [address], [facility] 11/18/2018 11:34:16 Date Recorded Body height Heart rate Oxygen saturation Systolic And Diastolic Provider Name and Address Organization Details Last Updated DateTime 11/18/2018 180.98 cm 62 /min 99 % 110/70 mm[Hg] Kortney Arevalo [facility] 11/18/2018 11:10:49 Date Recorded Body weight Oxygen saturation Heart rate Systolic And Diastolic Provider Name and Address Organization Details Last Updated DateTime 12/17/2017 02291.63 g 98 % 70 /min 104/62 mm[Hg] Renita Daley [facility] 12/17/2017 10:22:41 Date Recorded Body height Body mass index (BMI) Body weight Heart rate Oxygen saturation Systolic And Diastolic Provider Name and Address Organization Details Last Updated DateTime 9 180.98 cm 23.3 kg/m2 34361.3 1 g 61 /min 98 % 100/70 mm[Hg] Kortney Arevalo [facility] 9 09:31:52 Social History Question Answer Notes LastModified by COH Details LastModified Time Tobacco Smoking Status Never Smoker Not Available [facility] 02/15/2020 03:36:23 What Was The Date Of Your Most Recent Tobacco Screening? 02/19/2019 [id number] Information not available 02/15/2020 How Much Tobacco Do You Smoke? No [id number] Information not available 02/15/2020 How Many Years Have You Smoked Tobacco? 0 [id number] Information not available 02/15/2020 Sex: Unknown Functional Status Question Answer Note LastModified by COH Details LastModified Time Do you or have you ever used smokeless tobacco? Never used smokeless tobacco [id number] Information not available 02/15/2020 Do you or have you ever used e-cigarettes or vape? Never used electronic cigarettes [id number] Information not available 02/15/2020 Mental Status None recorded. Family History Relationship Description Onset Age of this Age Resolved Age Notes LastModified by Organization Details LastModified Time Unspecified Relation Diabetes mellitus [email or web address] Not available 2018 14:57:29 Medical History No medical history recorded. Immunizations Vaccine Type Date Status Note Provider Nam e and Address Organization Details Recorded Time TIG 06/30/2012 completed Not Available [facility] 04/29/2019 04:02:43 Past Encounters Encounter ID Performer Location Encounter Start Date Encounter Closed Date Diagnosis/Indication Diagnosis SNOMED-CT Code Diagnosis ICD10 Code Diagnosis IMO Codes Diagnosis Note [id number] Navin Griffith DO [facility] [address] [facility],[place] [address] 11/17/2017 14:00:12 11/18/2017 15:43:47 Contact dermatitis 59456822 L25.9 Diabetes mellitus 867395 09 E11.9 has blood slip, encouraged to complete labs [id number] Navin ErastoBlanca Griffith [facility] [address] [facility] [address],[place] [address] 12/17/2017 10:15:22 12/17/2017 16:09:43 Hypercholesterolemia 36914350 E78.00 ldl 81 Diabetes mellitus 441973 09 E11.9 A1C 7.1 [id number] Navin MaurerBlanca Griffith [facility] [address] [facility] [address],[place] [address] 04/22/2018 09:03:17 04/22/2018 17:56:50 Diabetes mellitus 55254685 E11.9 A1C 7.3 Hypercholesterolemia 136 76401 E78.00 ldl was 81 now 155, Hdl from 46-38 Active or passive immunization 272022364 Z23 Primary er ectile dysfunction 432842521 N52.9 Pt to check cost comparison with Ins. and call [id number] Navin Griffith [facility] [address] [facility] [address],[place] [address] 07/10/2018 10:47:48 07/10/2018 16:08:18 Hypercholesterolemia 35447527 E78.00 Diabetes mellitus 010198 09 E11.9 A1C 6.7 improved [id number] Navin Griffith [facility] [address] [facility] [address],[place] [address] 11/18/2018 10:59:54 11/18/2018 11:45:43 Anemia 434850208 D64.9 Type 2 mykel betes mellitus 80460367 E11.9 well controlled Hypercholesterolemia 136 10960 E78.00 stopped statin wanted to see if still needed cholestero l went from 99 to 165 will restart lipitor [id number] Navin Griffith [facility] [address] [facility] [address],[place] [address] 02/19/2019 09:18:51 02/19/2019 10:10:42 Adult health examination 766879000 Z00.00 Active or passive immunization 149839195 Z23 Anemia 036270273 D64.9 Type 2 mykel betes mellitus 28821386 E11.9 well controlled Hypercholesterolemia 136 54544 E78.00 stopped statin wanted to see if still needed cholestero l went from 99 to 165 will restart lipitor Screening for malignant neoplasm of colon 435630351 Z12.11 Screening for malignant neoplasm of prostate 179254259 Z12.5 Health Concerns Section Related Observation LastModified by Organization Detai ls LastModified Time None Recorded Concern Status LastModified by Organization Details LastModified Time None Recorded Advance Directives Directive None Recorded Payers Insurance Date Sequence Insurance Name Policy Number Policy Melendez Covered Member ID Melendez Member ID Guarantor Name 05/28/2019 1 [facility]: [facility] [place] [id number] Navin Garay [id number] Navin Copeland Jarrod Notes Date Note Type Note Provider Name a nd Address Organization Details Recorded Time 8 text/html ROS as noted in the HPI Routine exam Feels well, up to date with eye exams has been riding bicycle over summer , training to [employer] 12/20/2017 No CP/SOB, no recent illnesses, checking BS's at home-was very high when on prednisone Viki Gruber NP, [address] [place], [address], [facility] 12/17/2017 10:51:42 9 text/html Routine [...] as well Viki Gruber NP, [address] [place], [address], [facility] 04/22/2018 09:38:45 9 text/html routine f/u Has been doing intermittent fasting from 7p-noon daily, cut way back on carbs. was able to stop all lantus Also using 10 mg simvastatin instead of 20 mg exercising cardio & weights PM bs usually 90, awakens around 130 Viki Gruber, TONE, [address] [place], [address], [facility] 07/10/2018 11:11:56 9 text/html ROS as noted in the HPI 1. anemia - says taht he's been [...] rashes, or nail changes. SHAYAN Ball [address] [place], [address], [facility] 11/18/2018 11:44:37 9 text/html Annual WellnessReported by PatientSocial/Behavio ral HistoryFor diet and nutrition, patient reportshealthy diet. For fracture risk, patient reportsno history of fractures,no recent explained fracture,no sudden unexplained fractures, andno previous musculoskeletal injuries. For physical activity, patient reportsexercises on a regular basis. For additional lifestyle factors, patient reportsno tobacco useanddrinks alcohol (mild-moderate).Menta l Status:For depression risk, patient reportsnever feels sad, empty, or tearful,no loss of interest in activities,no significant changes in weight,no sleep disturbances or insomnia,no agitation,no loss of energy,no feelings of worthlessness or guilt,no thoughts of suicide,no history of depression, andno history of mood disorders.Functional AbilityFor hearing, patient reportsno loss of hearing. For vision, patient reportsno vision problems.ROS as noted in the HPI July SHAYAN Denton [address] [place] [address], [place], [address], [facility] 02/19/2019 10:07:19
--- OUTSIDE RECORDS SUMMARY | 2025-03-17 07:15 | XMS_ITS | Patient Health Record ---
Author Organization [facility] Address [address] [place] [address] Care Team Providers Care Cavalry Officer Name Role Phone ASHLIE BRUNO Primary Care Provider Kenneth Singh Jr Unavailable Allergies No Known Allergies Reason For Referral No Information Medications Medication SIG (Take, Route, Frequency, Duration) Notes Start Date End Date Status metFORMIN HCl ER 500 MG Tablet Extended Release 24 Hour 1 tablet with evening meal Orally Once a day; Duration: 30 day(s) Active Multivitamin Adults - Tablet as directed Orally Active Atorvastatin Calcium 10 MG Tablet 1 tablet Orally Once a day; Duration: 30 day(s) Active Trulicity 0.75 MG/0.5ML Solution Pen-injector as directed Subcutaneous Active MiraLax (colon prep) 17 GM/SCOOP Powder mixed with Gatorade or Crystal Light Orally begin at 5:00 p.m. the day before the procedure; Duration: 1 day 03/12/2021 Active Immunizations Vaccine Route Administration Date Status Comme nts Influenza Unknown 06/10/2019 Refused Influenza Unknown 02/13/2021 Administered Social History Tobacco Use: Social History Observation Description Date Details (start date - stop date) Never Smoker NA - NA Social History Drugs/Alcohol: Social Info Question Answer Notes Alcohol Screen Did you have a drink containing alcohol in the past year? Yes How often did you have a drink containing alcohol in the past year? Monthly or less (1 point) How many drinks did you have on a typical day when you were drinking in the past year? 1 or 2 drinks (0 point) How often did you have 6 or more drinks on one occasion in the past year? 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 Problems Problem Type SNOMED Code ICD Code Onset Dates Problem Status W/U Status Risk Notes Problem Colon cancer screening (793817748) Colon cancer screening (Z12.11) Active confirmed Problem Pre-procedure evaluation check (918479626) Encounter for other preprocedural examination (Z01.818) Active confirmed Problem Long-term current use of drug therapy (879613426) 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) use of oral hypoglycemic drugs (Z79.84) Active confirmed Plan Of Treatment Future Test Test Name Order Date COLONOSCOPY 06/10/2019 COLONOSCOPY 03/12/2021 Insurance Providers Payer Name Payer Address Payer Phone Subscriber Number Group Number Insured Name Patient Relationship to Insured Coverage Start Date Coverage End Date [facility] [address] [place] [address] [id number] VINNIE BOATENG Self - patient is the insured Medical (General) History Medical History History ICD Code diabetes mellitus elevated Cholesterol Surgical History Surgery Date(Month/Year)
[2025-03-17 10:28] LABS: MANUAL DIFF FLAG NO
[2025-03-17 10:35] LABS: Hematocrit 37.7 % (42.0-52.0); Hemoglobin 12.4 g/dl (14.0-18.0); Imm Gran Abs Auto 0.01 X10*3/uL (0.00-0.03); Imm Gran Pct Auto 0.2 % (0.0-0.4); Lymphocytes Absolute Auto 1.3 X10*3/uL (1.2-4.9); Mean Corpuscular HGB Conc 32.9 g/dl (31.0-36.0); Mean Corpuscular Hemoglobin 30.7 pg (27.0-33.0); Mean Corpuscular Volume 93.3 fL (80.0-98.0); NRBC Abs Auto 0.000 X10*3/uL (0.0-0.012); NRBC Pct Auto 0.0 /100WBC (0.0-0.2); Platelet Count 204 X10*3/uL (160-400); Red Blood Count 4.04 X10*6/uL (4.60-5.80); Reticulocytes Absolute 0.028 X10*6/uL (0.026-0.095); White Blood Count 4.7 X10*3/uL (4.8-10.8)
[2025-03-17 12:12] LABS: Alanine Aminotransferase 33 U/L (0-40); Albumin Level 4.5 g/dL (3.5-5.0); Alkaline Phosphatase 45 U/L (39-117); Anion Gap 11 (12-20); Aspartate Amino Transferase 35 U/L (5-37); Blood Urea Nitrogen 24 mg/dL (9-16); Calcium 9.6 mg/dL (8.4-10.2); Carbon Dioxide 27 mmol/L (22-29); Chloride 107 mmol/L (96-108); Cholesterol 212 mg/dL (<200); Estimated Glomerular Filt Rate > 60; Ferritin 86 ng/mL (20-250); HDL Cholesterol 59 mg/dL (>40); Potassium 4.6 mmol/L (3.3-5.1); Sodium 140 mmol/L (135-145); Total Protein 7.1 g/dL (6.5-8.0); Triglycerides 85 mg/dL (<150)
[2025-03-17 12:15] LABS: Prostate Specific Antigen 1.34 ng/mL (<0.05-4.0)
[2025-03-17 12:28] LABS: Folate 14.3 ng/mL (> or = 4.0); Vitamin B12 474 pg/mL (200-900)
[2025-03-21 10:24] LABS: Anti Nuclear Antibody Screen NEGATIVE (NEGATIVE)
== END 2025-03-17 07:11 | disposition home or self-care (01) ==
LOC: HO.HMGCLDS 07:10
PROVIDERS: Absent Provider Urology; PCP Nurse Practitioner Family; Visit Provider Nurse Practitioner Family
DX: Z00.00 Encounter for general adult medical examination without abnormal findings (principal); Z01.84 Encounter for antibody response examination; E11.9 Type 2 diabetes mellitus without complications; N52.1 Erectile dysfunction due to diseases classified elsewhere; D64.9 Anemia, unspecified; Z79.4 Long term (current) use of insulin; Z12.5 Encounter for screening for malignant neoplasm of prostate
CPT/HCPCS: 36415; 80053; 80061; 82607; 82728; 82746; 83615; 84153; 84403; 84443; 85025; 85045; 86038

== ENCOUNTER 2025-03-30 14:00 | Outpatient (AMB) | payer BC, SELFPAY ==
--- NOTE | 2025-03-30 14:03 | A.OFFVIS_ITS ---
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 He is seen for the following urologic conditions - erectile dysfunction in setting of diabetes Six-month follow-up T remained stable - 10/06 640, 04/07 550 Metabolic evaluation appears to be improving Good response to daily tadalafil with on demand sildenafil Continue with 5mg tadalafil with on demand high-dose sildenafil Erectile dysfunction Diabetic Last HBA1c 10/04 7.1, 12/05 6.3 Response to medication - does obtain erection but does not maintain Response does not very with increasing dose Baseline labs 11/01 T 500, well controlled HbA1c, 06/07 T 475 FT 68 12/05 P 1.5 Discussion about maximum dose sildenafil 200 mg Other options include constriction band, vacuum pump, injectable therapy and penile prosthetic [facility] Medical History Dyslipidemia Diabetes Surgical History No pertinent past surgical history Family History Father No problems noted. Mother Dementia Sister No problems noted. Social History Housing: House Alcohol intake: current Patient Tobacco Use Status: Never used Tobacco e-Cigarette/Vaping Use: Never Used Second Hand Smoke Exposure: No service: Yes Current occupational status: employed Current occupation: [employer] Current occupational exposures/hazards: Yes Cognitive needs: No Hearing needs: No Vision needs: Yes Review of Systems Const Denies chills and Denies fever(s) Card Reports no additional complaints and Denies syncope Resp Denies cough GI Denies abdominal pain and Denies heartburn Reports as per HPI and Denies change in libido Neuro Denies syncope Psych Denies change in libido Endo Denies change in libido Physical Exam Const General: cooperative, healthy appearing, comfortable and no acute distress Orientation/consciousness: patient oriented x3 HEENT Face and sinus: Yes normal facial exam Mouth: moist mucous membranes Neck Neck: Yes normal visual inspection, Yes full ROM and Yes trachea midline Chest Chest palpation & inspection: normal inspection of the chest Resp Effort & Inspection: normal respiratory effort, able to speak in complete sentences and no respiratory distress GI Inspection: Yes normal to inspection Back/Spine/Pelvis Cervical Spine: normal cervical lordosis Thoracic/Lumbar Spine: thoracic and lumbar spine normal to inspection Skin General skin exam: no rashes or lesions noted Neuro General: patient oriented x3, gait normal, tone normal and moves all extremities Extrem General: Yes normal to inspection and Yes capillary refill normal Assessment & Plan Assessment & Plan (1) Erectile dysfunction associated with type 2 diabetes mellitus: Code(s): E11.69 - Type 2 diabetes mellitus with other specified complication; N52.1 - Erectile dysfunction due to diseases classified elsewhere Category: Medical Plan Twelve month follow-up lab work Prescription refill Patient Instructions: This note is constructed using voice recognition software. While every effort has been made to ensure accuracy railroad passenger agent errors may have been included. Imaging studies, laboratory and physical exam results were discussed and reviewed in detail. No major barriers to patient understanding were identified. An opportunity to ask questions regarding the treatment plan was provided. All questions were answered. The patient expressed understanding and agreement with the above treatment plan. The patient is aware they should contact our office by phone for worsening of their current condition or the appearance of new urologic symptoms. Compliance is encouraged with any medications and followup testing that is ordered. It is a privilege to participate in the urologic care of your patient. If you have any questions or concerns regarding treatment for the above conditions, or other urologic issues, please do not hesitate to contact me. The office telephone contact is [phone]. Sincerely, Dr Nick Zuleta MD, [facility] Compassionate Specialist Care for the Genitourinary System Coding Level of Care Code Est Pt Level 3 (56381) Diagnoses Erectile dysfunction associated with type 2 diabetes mellitus E11.69; N52.1
--- OUTSIDE RECORDS SUMMARY | 2025-03-30 18:37 | XMS_ITS | Data Portability ---
Author Organization [facility], Telehealth Patient Home Address [address] [place] [address] Assessment No assessment recorded. Plan of Treatment Reminders Order Date Submit Date Provider Last Modified By Organization Details Last Modified Time Details Appointments None recorded. Lab microalbum in, urine 2018 [email or web address] Not available 9 08:53:32 lipid panel, blood 2018 [email or web address] Not available 9 08:53:32 CMP, serum or plasma 2018 019 [email or web address] Not available 9 08:53:32 urinalysis , dipstick 2018 [facility], [address] [place] [address], [facility], [place], [address], 9 09:57:06 iron + TIBC + ferritin, serum 2018 Not available 9 09:57:07 vitamin B12, serum 2018 019 Not available 9 09:57:07 folate, serum 2018 Not available 9 09:57:07 CBC w/ diff 2018 Not available 9 09:57:07 PSA, serum or plasma 2018 019 ATHENAFAX [facility], [address] [facility], [address], [place], [address], 9 09:57:49 HbA1c (hemoglobi n A1c), blood [...] referral 2018 019 hred Lehman Jr, MD, [address] [place] [address] [place], [address], 9 08:29:00 gastroente rologist referral 2018 019 CHELSEAENASOPHIAX Kenneth Lehman Jr, MD, [address] [facility] [place], [address], 9 13:40:47 Procedures None recorded. Surgeries None recorded. Imaging None recorded. Medication Orders atorvastat in 20 mg tablet 2018 019 sol [id number], [address] [place], [address], 09:30:36 Patient TargetsNo targets recorded. Patient Instructions Encounter Date Encounter Id Patient Instructions Last Modified By Organization Details Last Modified Time 12/17/2017 [id number] Continue healthy exercise [email or web address] Not available 12/17/2017 10:49:47 07/10/2018 [id number] Continue healthy lifestyle changes [facility] Not available 07/10/2018 11:11:43 11/18/2018 [id number] learning about type 2 diabetes Not available 11/18/2018 11:34:34 type 2 diabetes: care instructions Not available 11/18/2018 11:34:34 anemia: care instructions Not available 11/18/2018 11:34:34 02/19/2019 [id number] learning about type 2 diabetes [facility] Not available 02/19/2019 09:57:07 type 2 diabetes: care instructions [facility] Not available 02/19/2019 09:57:07 anemia: care instructions [facility] Not available 02/19/2019 09:57:07 Reason for Referral Colonoscopy Referral for Scr eening for malignant neoplasm of colon Referring Physician: Ivania D[facility], Encounter Date: 02/19/2019 Clinical Operations Manager Referral for Screening for malignant neoplasm of colon Referring Physician: Ivania D[facility], Encounter Date: 02/19/2019 Results Created Date Observation Date Name Description Value Unit Range Abnormal Flag Note LastModifiedBy Organization Detail LastModifiedTime 02/20/2002/19/2019 urina lysis , dipst ick Leukocytes Negati ve Not Available [facility] [address] [place] [address] [place], [address], 02/19/2019 09:30:57 02/20/2002/19/2019 urina lysis , dipst ick Nitrite negati ve Not Available [facility] [address] [place] [address] D, [place], [address], 02/19/2019 09:30:57 02/20/2002/19/2019 urina lysis , dipst ick Urobilinogen .2 Not Available [facility] [address] [facility] [address], [place], [address], 02/19/2019 09:30:57 02/20/2002/19/2019 urina lysis , dipst ick Protein Negati ve Not Available [facility] [address] [facility] D, [place], [address], 02/19/2019 09:30:57 02/20/2002/19/2019 urina lysis , dipst ick pH 6.0 Not Available [facility] [address] [facility] [address], [place], [address], 02/19/2019 09:30:57 02/20/2002/19/2019 urina lysis , dipst ick Blood Negati ve Not Available [address], [place], [address], 02/19/2019 09:30:57 02/20/2002/19/2019 urina lysis , dipst ick Specific [place] 1.020 Not Available [facility] [address] [facility] [address], [place], [address], 02/19/2019 09:30:57 02/20/2002/19/2019 urina lysis , dipst ick Ketone Negati ve Not Available [facility] [address] [facility] D, [place], [address], 02/19/2019 09:30:57 02/20/2002/19/2019 urina lysis , dipst ick Bilirubin Negati ve Not Available [facility] [address] [facility] [address], [place], [address], 02/19/2019 09:30:57 02/20/20 19 02/19/2019 urina lysis , dipst ick Glucose Negati ve Not Available [facility] [address] [facility] [address], [place], [address], 02/19/2019 09:30:57 02/20/20 19 02/19/2019 urina lysis , dipst ick Appearance Clear Not Available [address], [place], [address], 02/19/2019 09:30:57 02/20/20 19 02/19/2019 urina lysis , dipst ick Color Yellow Not Available [address], [place], [address], 02/19/2019 09:30:57 Result Notes None recorded. Problems Name Problem SNOMED Code Status Onset Date Resolution Date Notes Provider Name and Address Organization Details Recorded Time Diabetes mellitus 66229184 Active 2017 Renita castillo [facility] 8 10:36:19 Hyperchole sterolemia 42827929 Active 2017 Renita castillo [facility] 8 10:36:27 Type 2 diabetes mellitus 84579154 Active [address], [address], [facility] 9 11:35:05 Anemia 297671639 Active [address], [address], [facility] 9 11:35:16 Problem Notes None recorded. [...] Updated DateTime 9 180.98 cm 25.7 kg/m2 68129.4 6 g 67 /min 98 % 110/70 mm[Hg] Renita Daley [facility] 9 09:09:52 Date Recorded Body height Body mass index (BMI) Body weight Heart rate Oxygen saturation Systolic And Diastolic Provider Name and Address Organization Details Last Updated DateTime 9 180.98 cm 24.2 kg/m2 78839.3 1 g 62 /min 99 % 126/80 mm[Hg] Kortney Arevalo [facility] 9 10:54:54 Date Recorded Body mass index (BMI) Body weight Provider Name and Address Organization Details Last Updated DateTime 11/18/2018 23 kg/m2 23855.33 g July SHAYAN Denton [address] [place] [address], [address], [facility] 11/18/2018 11:34:16 Date Recorded Body height Heart rate Oxygen saturation Systolic And Diastolic Provider Name and Address Organization Details Last Updated DateTime 11/18/2018 180.98 cm 62 /min 99 % 110/70 mm[Hg] Kortney Arevalo [facility] 11/18/2018 11:10:49 Date Recorded Body weight Oxygen saturation Heart rate Systolic And Diastolic Provider Name and Address Organization Details Last Updated DateTime 12/17/2017 53575.63 g 98 % 70 /min 104/62 mm[Hg] Renita Daley [facility] 12/17/2017 10:22:41 Date Recorded Body height Body mass index (BMI) Body weight Heart rate Oxygen saturation Systolic And Diastolic Provider Name and Address Organization Details Last Updated DateTime 9 180.98 cm 23.3 kg/m2 66808.3 1 g 61 /min 98 % 100/70 mm[Hg] Kortney Arevalo [facility] 9 09:31:52 Social History Question Answer Notes LastModified by [email or web address] Details LastModified Time Tobacco Smoking Status Never Smoker Not Available [facility] 02/15/2020 03:36:23 What Was The Date Of Your Most Recent Tobacco Screening? 02/19/2019 [id number] Information not available 02/15/2020 How Much Tobacco Do You Smoke? No [id number] Information not available 02/15/2020 How Many Years Have You Smoked Tobacco? 0 [id number] Information not available 02/15/2020 Sex: Unknown Functional Status Question Answer Note LastModified by [email or web address] Details LastModified Time Do you or have you ever used smokeless tobacco? Never used smokeless tobacco [id number] Information not available 02/15/2020 Do you or have you ever used e-cigarettes or vape? Never used electronic cigarettes [id number] Information not available 02/15/2020 Mental Status None recorded. Family History Relationship Description Onset Age of this Age Resolved Age Notes LastModified by Organization Details LastModified Time Unspecified Relation Diabetes mellitus [email or web address] Not available 2018 14:57:29 Medical History No medical history recorded. Immunizations Vaccine Type Date Status Note Provider Nam e and Address Organization Details Recorded Time TIG 06/30/2012 completed Not Available [facility] 04/29/2019 04:02:43 Past Encounters Encounter ID Performer Location Encounter Start Date Encounter Closed Date Diagnosis/Indication Diagnosis SNOMED-CT Code Diagnosis ICD10 Code Diagnosis IMO Codes Diagnosis Note [id number] Navin Griffith DO [facility] [address] [facility],[place] [address] 11/17/2017 14:00:12 11/18/2017 15:43:47 Contact dermatitis 55074085 L25.9 Diabetes mellitus 368931 09 E11.9 has blood slip, encouraged to complete labs [id number] [facility] [address] [facility] [address],[place] [address] 12/17/2017 10:15:22 12/17/2017 16:09:43 Hypercholesterolemia 71016300 E78.00 ldl 81 Diabetes mellitus 446484 09 E11.9 A1C 7.[id number] [facility] [address] [facility] [address],[place] [address] 04/22/2018 09:03:17 04/22/2018 17:56:50 Diabetes mellitus 14832696 E11.9 A1C 7.3 Hypercholesterolemia 136 76105 E78.00 ldl was 81 now 155, Hdl from 46-38 Active or passive immunization 638602175 Z23 Primary er ectile dysfunction 241863189 N52.9 Pt to check cost comparison with Ins. and call [id number] [facility] [address] [facility] [address],[place] [address] 07/10/2018 10:47:48 07/10/2018 16:08:18 Hypercholesterolemia 22057027 E78.00 Diabetes mellitus 485136 09 E11.9 A1C 6.[id number] [facility] [address] [facility] [address],[place] [place] [address] 11/18/2018 10:59:54 11/18/2018 11:45:43 Anemia 240404582 D64.9 Type 2 mykel betes mellitus 57175049 E11.9 well controlled Hypercholesterolemia 136 66574 E78.00 stopped statin wanted to see if still needed cholestero l went from 99 to 165 will restart lipitor [id number] [facility] [address] [facility] [address],[place] [address] 02/19/2019 09:18:51 02/19/2019 10:10:42 Adult health examination 369537435 Z00.00 Active or passive immunization 326204071 Z23 Anemia 561186303 D64.9 Type 2 mykel betes mellitus 25798949 E11.9 well controlled Hypercholesterolemia 136 66340 E78.00 stopped statin wanted to see if still needed cholestero l went from 99 to 165 will restart lipitor Screening for malignant neoplasm of colon 839022173 Z12.11 Screening for malignant neoplasm of prostate 238544274 Z12.5 Health Concerns Section Related Observation LastModified by Organization Detai ls LastModified Time None Recorded Concern Status LastModified by Organization Details LastModified Time None Recorded Advance Directives Directive None Recorded Payers Insurance Date Sequence Insurance Name Policy Number Policy Melendez Covered Member ID Melendez Member ID Guarantor Name 05/28/2019 1 [facility] [place] [id number] Navin Garay [id number] Navin Copeland Jarrod Notes Date Note Type Note Provider Name a nd Address Organization Details Recorded Time 8 text/html ROS as noted in the HPI Routine exam Feels well, up to date with eye exams has been riding bicycle over summer , training to [employer] 12/20/2017 No CP/SOB, no recent illnesses, checking BS's at home-was very high when on prednisone Viki Gruber NP, [address] [place], [address], [facility] 12/17/2017 10:51:42 9 text/html Routine [...] as well Viki Gruber NP, [address] [place], [address], [facility] 04/22/2018 09:38:45 9 text/html routine f/u Has been doing intermittent fasting from 7p-noon daily, cut way back on carbs. was able to stop all lantus Also using 10 mg simvastatin instead of 20 mg exercising cardio & weights PM bs usually 90, awakens around 130 Viki Gruber, TONE, [address] [place], [address], [facility] 07/10/2018 11:11:56 9 text/html ROS [...] rashes, or nail changes. SHAYAN Ball [address] [place], [address], [facility] 11/18/2018 11:44:37 9 text/html Annual [...] noted in the HPI July SHAYAN Denton [address] [place] [address], [place], [address], [facility] 02/19/2019 10:07:19
--- OUTSIDE RECORDS SUMMARY | 2025-03-30 18:37 | XMS_ITS | Patient Health Record ---
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 Problems Problem Type SNOMED Code ICD Code Onset Dates Problem Status W/U Status Risk Notes Problem Colon cancer screening (721651471) Colon cancer screening (Z12.11) Active confirmed Problem Pre-procedure evaluation check (535434561) Encounter for other preprocedural examination (Z01.818) Active confirmed Problem Long-term current use of drug therapy (217414091) correction (current) use of oral hypoglycemic drugs (Z79.84) Active confirmed Plan Of Treatment Future Test Test Name Order Date COLONOSCOPY 06/10/2019 COLONOSCOPY 03/12/2021 Insurance Providers Payer Name Payer Address Payer Phone Subscriber Number Group Number Insured Name Patient Relationship to Insured Coverage Start Date Coverage End Date [facility] [address] [place] [address] [id number] VINNIE BOATENG Self - patient is the insured Medical (General) History Medical History History ICD Code diabetes mellitus elevated Cholesterol Surgical History Surgery Date(Month/Year)
== END 2025-03-30 15:12 | disposition home or self-care (01) ==
LOC: HO.HUSH 14:00
PROVIDERS: PCP Nurse Practitioner Family; Visit Provider Urology
DX: E11.69 Type 2 diabetes mellitus with other specified complication (principal); N52.1 Erectile dysfunction due to diseases classified elsewhere
CPT/HCPCS: 99213